=== PATIENT | male | born 1980 | race Two or more races ===

== ENCOUNTER 2019-11-08 08:42 | Inpatient (IN) | payer OTHER ==
[~2019-11-08] VITALS: Ht 175.3 cm; Wt 100.0 kg
[2019-11-08] MEDS ORDERED: IV NORMAL SALINE 1000ML BAG 1,000 ML IV ONE (09:00)
[2019-11-08] MEDS ORDERED: CLINDAMYCIN 900MG PREMIX 50 ML IV ONE (09:30)
[2019-11-08 09:53] LABS: BASO # 0.1 x10^3/uL (0.0-0.2); BASO % 1 % (0-3); EOS # 0.2 x10^3/uL (0.0-0.7); EOS % 2 % (0-3); HEMATOCRIT 44.1 % (39.0-53.0); HEMOGLOBIN 15.4 g/dL (13.0-17.5); LYMPH # 1.8 x10^3/uL (1.0-4.8); LYMPH % 16 % (24-48); MEAN CORPUSCULAR HEMOGLOBIN 32 pg (25-35); MEAN CORPUSCULAR HGB CONC 35 g/dL (31-37); MEAN CORPUSCULAR VOLUME 90 fL (79-100); MONO # 1.9 x10^3/uL (0.0-1.1); MONO % 17 % (0-9); NEUT # 6.9 x10^3/uL (1.8-7.7); NEUT % 64 % (31-73); PLATELET COUNT 433 x10^3/uL (140-400); RED CELL DISTRIBUTION WIDTH 13.1 % (11.5-14.5); WHITE BLOOD COUNT 10.9 x10^3/uL (4.0-11.0)
[2019-11-08 10:05] LABS: CALCIUM 8.7 mg/dL (8.5-10.1); GFR 82.8; POTASSIUM 3.5 mmol/L (3.5-5.1)
[2019-11-08 10:11] LABS: ALBUMIN/GLOBULIN RATIO 0.6 (1.0-1.7); TOTAL BILIRUBIN 0.4 mg/dL (0.2-1.0); TOTAL PROTEIN 7.8 g/dL (6.4-8.2)
[2019-11-08] MEDS ORDERED: MORPHINE SULFATE 4 MG/ML VIAL. IV ONE (10:15)
[2019-11-08] MEDS ORDERED: MORPHINE SULFATE 4 MG/ML VIAL. IV PRN (10:30)
[2019-11-08] MEDS ORDERED: ONDANSETRON PF 4 MG/2 ML VIAL. IV PRN (10:30)
--- NOTE | 2019-11-08 10:35 | PHYS DOC ---
Past Medical History Past Medical History: No Pertinent History Past Surgical History: No Surgical History Smoking Status: Former Smoker Alcohol Use: None General Adult EDM: Chief Complaint: FACE PROBLEM HPI: HPI: Patient is a 39 year old male from [facility] was brought here for evaluation of right side lower facial pain and swelling. Patient has had pain in this area for about 3 weeks. Patient was seen by an oral surgeon Dr.Aaron Contreras, had tooth extraction on 10/28/19, has been on Augmentin, not getting better. Dr. Contreras sent him here for IV ANTIBIOTIC, CT FACE WITH CONTRAST, ADMIT TO THE HOSPITAL AND HE WILL SEE PATIENT THE HOSPITAL. Review of Systems: Review of Systems: Constitutional: Denies fever or chills. [] Eyes: Denies change in visual acuity. [] HENT: Denies nasal congestion or sore throat. Positive for right side facial swelling with dental pain Respiratory: Denies cough or shortness of breath. [] Cardiovascular: Denies chest pain or edema. [] GI: Denies abdominal pain, nausea, vomiting, bloody stools or diarrhea. [] : Denies dysuria. [] Musculoskeletal: Denies back pain or joint pain. [] Integument: Denies rash. [] Neurologic: Denies headache, focal weakness or sensory changes. [] Endocrine: Denies polyuria or polydipsia. [] Lymphatic: Denies swollen glands. [] Psychiatric: Denies depression or anxiety. [] Heart Score: Risk Factors: Risk Factors: DM, Current or recent (<one month) smoker, HTN, HLP, family history of CAD, obesity. Risk Scores: Score 0 - 3: 2.5% MACE over next 6 weeks - Discharge Home Score 4 - 6: 20.3% MACE over next 6 weeks - Admit for Clinical Observation Score 7 - 10: 72.7% MACE over next 6 weeks - Early Invasive Strategies Current Medications: Current Medications Medications (Trade) Dose Ordered Sig/Viki Start Time Stop Time Status Last Admin Dose Admin Clindamycin Phosphate 50 ml @ 100 mls/hr 1X ONCE 11/08/19 09:30 11/08/19 09:59 DC 11/08/19 10:12 100 MLS/HR Morphine Sulfate (Morphine Sulfate) 4 mg QIDPRN PRN 11/08/19 10:30 11/09/19 10:29 UNV Ondansetron HCl (Zofran) 4 mg PRN Q8HRS PRN 11/08/19 10:30 11/09/19 10:29 UNV Sodium Chloride 1,000 ml @ 100 mls/hr Q10H 11/08/19 10:24 11/09/19 10:23 UNV Allergies: Allergies: Allergies Coded Allergies Type Severity Reaction Last Updated Verified No Known Drug Allergies 11/08/19 No Physical Exam: PE: Constitutional: Well developed, well nourished, no acute distress, non-toxic appearance. [] HENT: Normocephalic, atraumatic, right side lower jaw swelling and tender, patient can open his mouth with great effort. Eyes: PERRLA, EOMI, conjunctiva normal, no discharge. [] Neck: Normal range of motion, no tenderness, supple, no stridor. [] Cardiovascular:Heart rate regular rhythm, no murmur [] Lungs & Thorax: Bilateral breath sounds clear to auscultation [] Abdomen: Bowel sounds normal, soft, no tenderness, no masses, no pulsatile masses. [] Skin: Warm, dry, no erythema, no rash. [] Back: No tenderness, no CVA tenderness. [] Extremities: No tenderness, no cyanosis, no clubbing, ROM intact, no edema. [] Neurologic: Alert and oriented X 3, normal motor function, normal sensory function, no focal deficits noted. [] Psychologic: Affect normal, judgement normal, mood normal. [] Current Patient Data: Labs: Laboratory Tests Test 11/08/19 09:45 White Blood Count 10.9 x10^3/uL (4.0-11.0) Red Blood Count 4.90 x10^6/uL (4.30-5.70) Hemoglobin 15.4 g/dL (13.0-17.5) Hematocrit 44.1 % (39.0-53.0) Mean Corpuscular Volume 90 fL (79-100) Mean Corpuscular Hemoglobin 32 pg (25-35) Mean Corpuscular Hemoglobin Concent 35 g/dL (31-37) Red Cell Distribution Width 13.1 % (11.5-14.5) Platelet Count 433 x10^3/uL (140-400) H Neutrophils (%) (Auto) 64 % (31-73) Lymphocytes (%) (Auto) 16 % (24-48) L Monocytes (%) (Auto) 17 % (0-9) H Eosinophils (%) (Auto) 2 % (0-3) Basophils (%) (Auto) 1 % (0-3) Neutrophils # (Auto) 6.9 x10^3/uL (1.8-7.7) Lymphocytes # (Auto) 1.8 x10^3/uL (1.0-4.8) Monocytes # (Auto) 1.9 x10^3/uL (0.0-1.1) H Eosinophils # (Auto) 0.2 x10^3/uL (0.0-0.7) Basophils # (Auto) 0.1 x10^3/uL (0.0-0.2) Sodium Level 137 mmol/L (136-145) Potassium Level 3.5 mmol/L (3.5-5.1) Chloride Level 99 mmol/L (98-107) Carbon Dioxide Level 28 mmol/L (21-32) Anion Gap 10 (6-14) Blood Urea Nitrogen 10 mg/dL (8-26) Creatinine 1.0 mg/dL (0.7-1.3) Estimated GFR (Cockcroft-Gault) 82.8 BUN/Creatinine Ratio 10 (6-20) Glucose Level 110 mg/dL (70-99) H Calcium Level 8.7 mg/dL (8.5-10.1) Total Bilirubin 0.4 mg/dL (0.2-1.0) Aspartate Amino Transferase (AST) 39 U/L (15-37) H Alanine Aminotransferase (ALT) 55 U/L (16-63) Alkaline Phosphatase 109 U/L (46-116) Total Protein 7.8 g/dL (6.4-8.2) Albumin 3.0 g/dL (3.4-5.0) L Albumin/Globulin Ratio 0.6 (1.0-1.7) L Laboratory Tests 11/08/19 09:45 Laboratory Tests 11/08/19 09:45 Vital Signs: Vital Signs Date Time Temp Pulse Resp B/P (MAP) Pulse Ox O2 Delivery O2 Flow Rate FiO2 11/08/19 09:00 99.0 90 20 140/91 (107) 98 Room Air 99.0 EKG: EKG: [] Radiology/Procedures: Radiology/Procedures: [][facility] [address] [place], [place] [id number] IMAGING REPORT Signed PATIENT: JUNG HATFIELD: [id number] : 1980 LOCATION: [address] [place] [address] AGE: 39 SEX: M EXAM STATUS: ADM IN ORD. PHYSICIAN: ROSITA CARR DO REASON: dental swelling, abscess, recent extractions PROCEDURE: CT SOFT TISSUE NECK W/CONTRAST CT SOFT TISSUE NECK W/CONTRAST DATE: 11/08/2019 10:12 AM INDICATION: dental swelling, abscess, recent extractions TECHNIQUE: Axial computed tomography of the neck with intravenous contrast according to the standard neck protocol. 75 cc of Omnipaque 300 was administered intravenously. One or more of the following dose reduction techniques were utilized: Automated exposure control (AEC), Adjustment of mA and/or kV according to patient size, Use of iterative reconstruction technique such as ASiR, CT scan done according to ALARA and image gently/image wisely COMPARISON: None. FINDINGS: Right lower facial subcutaneous stranding and thickening of the platysma. Thin low-attenuation collection along the buccal surface of the mandible on the right, measuring 3 mm in thickness and 2 cm in length. Scattered subcentimeter lymph nodes are seen in the neck. None are pathologically enlarged or abnormally enhancing. The parotid, submandibular, and thyroid glands are normal. The muscles of the neck are normal. Vessels of the neck demonstrate normal course, caliber, and enhancement. The visualized aerodigestive tract is normal. The visualized posterior fossa and brain is unremarkable. The visualized orbits and paranasal sinuses are normal. The cervical spine is normal. The visualized lung apices are clear. IMPRESSION: Right lower facial cellulitis with a thin collection extending along the buccal surface of the mandible measuring 3 mm in thickness and 2 cm in length, suspicious for an abscess. Electronically signed by: Pollo Blair MD (11/08/2019 11:51 AM) [id number] DICTATED and SIGNED BY: POLLO BLAIR MD DATE: 11/08/19 1151 Course & Med Decision Making: Course & Med Decision Making Pertinent Labs and Imaging studies reviewed. (See chart for details) [] Dragon Disclaimer: Dragon Disclaimer: This electronic medical record was generated, in whole or in part, using a voice recognition dictation system. Departure Departure Impression: Primary Impression: Dental abscess Disposition: ADMITTED INPATIENT Admitting Physician: DOREEN (DR. NOGUERA) Condition: STABLE Referrals: NO PCP (PCP) Justicifation of Admission Dx: Justifications for Admission: Justification of Admission Dx: N/A ROSITA CARR DO Nov 08, 2019 10:35
[2019-11-08] MEDS ORDERED: IOHEXOL 300 MG/ML 100ML VIAL. IV ONE (10:45)
[2019-11-08] MEDS ORDERED: CONTRAST GIVEN. MC PRN (10:45)
[2019-11-08] MEDS: IV NORMAL SALINE 1000ML BAG 1,000 ML IV SCH ×2 (10:54→20:30)
--- NOTE | 2019-11-08 11:55 | RAD ---
CT SOFT TISSUE NECK W/CONTRAST DATE: 11/08/2019 10:12 AM INDICATION: dental swelling, abscess, recent extractions TECHNIQUE: Axial computed tomography of the neck with intravenous contrast according to the standard neck protocol. 75 cc of Omnipaque 300 was administered intravenously. One or more of the following dose reduction techniques were utilized: Automated exposure control (AEC), Adjustment of mA and/or kV according to patient size, Use of iterative reconstruction technique such as ASiR, CT scan done according to ALARA and image gently/image wisely COMPARISON: None. FINDINGS: Right lower facial subcutaneous stranding and thickening of the platysma. Thin low-attenuation collection along the buccal surface of the mandible on the right, measuring 3 mm in thickness and 2 cm in length. Scattered subcentimeter lymph nodes are seen in the neck. None are pathologically enlarged or abnormally enhancing. The parotid, submandibular, and thyroid glands are normal. The muscles of the neck are normal. Vessels of the neck demonstrate normal course, caliber, and enhancement. The visualized aerodigestive tract is normal. The visualized posterior fossa and brain is unremarkable. The visualized orbits and paranasal sinuses are normal. The cervical spine is normal. The visualized lung apices are clear. IMPRESSION: Right lower facial cellulitis with a thin collection extending along the buccal surface of the mandible measuring 3 mm in thickness and 2 cm in length, suspicious for an abscess. Electronically signed by: Rafael Blair MD (11/08/2019 11:51 AM) [id number]
[2019-11-08 12:39] VITALS: BP 142/89
[2019-11-08 15:19] VITALS: BP 147/89
--- NOTE | 2019-11-08 15:57 | PDOC1 ---
History and Physical Date of Admission: Date of Admission DATE: 11/08/19 TIME: 15:50 Chief Complaint: Chief Complain: Oral swelling and dental pain History of Present Illness: HPI: 39 year old male from [facility] was brought here for evaluation of right side lower facial pain and swelling. Patient has had pain in this area for about 3 weeks. Patient was seen by an oral surgeon Dr.Aaron Contreras, had tooth extraction on 10/28/19, has been on Augmentin, without any improvement. Patient was sent to the ED for IV antibiotics and CT of the's neck with contrast. Patient will be seen by oral surgeon tomorrow for possible surgical I&D Past Medical/Surgical History: PMH/PSH: Past Medical History: No Pertinent History Past Surgical History: No Surgical History Allergies: Allergies: Coded Allergies: No Known Drug Allergies (Unverified , 11/08/19) Family History: Family History: Reviewed and none reported Social History: Social History: Smoking Status: Former Smoker Alcohol Use: None Patient has been incarcerated for the past 9 years Current Medications: Current Medications Current Medications Clindamycin Phosphate 50 ml @ 100 mls/hr Q8HRS IV ; Start 11/08/19 at 16:00 Sodium Chloride 1,000 ml @ 1,000 mls/hr 1X ONCE IV Last administered on 11/08/19at 10:10; Start 11/08/19 at 09:00; Stop 11/08/19 at 09:59; Status DC Clindamycin Phosphate 50 ml @ 100 mls/hr 1X ONCE IV Last administered on 11/08/19at 10:12; Start 11/08/19 at 09:30; Stop 11/08/19 at 09:59; Status DC Morphine Sulfate (Morphine Sulfate) 4 mg 1X ONCE IV Last administered on 11/08/19at 10:23; Start 11/08/19 at 10:15; Stop 11/08/19 at 10:16; Status DC Ondansetron HCl (Zofran) 4 mg PRN Q8HRS PRN IV NAUSEA/VOMITING Last administered on 11/08/19at 10:54; Start 11/08/19 at 10:30; Stop 11/09/19 at 10:29 Morphine Sulfate (Morphine Sulfate) 4 mg QIDPRN PRN IV PAIN Last administered on 11/08/19at 10:54; Start 11/08/19 at 10:30; Stop 11/09/19 at 10:29 Sodium Chloride 1,000 ml @ 100 mls/hr Q10H IV Last administered on 11/08/19at 10:54; Start 11/08/19 at 10:24; Stop 11/09/19 at 10:23 Iohexol (Omnipaque 300 Mg/ml) 75 ml 1X ONCE IV Last administered on 11/08/19at 10:51; Start 11/08/19 at 10:45; Stop 11/08/19 at 10:46; Status DC Info (CONTRAST GIVEN -- Rx MONITORING) 1 each PRN DAILY PRN MC SEE COMMENTS; Start 11/08/19 at 10:45; Stop 11/10/19 at 10:44 Active Scripts Active Reported No Known Medications Prior To Admisstion (Info) Each 1 Each MC UNKNOWN ROS: Review of Systems Review of System REVIEW OF SYSTEMS: GENERAL: Denies weakness SKIN: No bruising, hair changes or rashes. EYES: No blurred, double or loss of vision. NOSE AND THROAT: No history of nosebleeds, hoarseness or sore throat. HEART: No history of palpitations, chest pain or shortness of breath on exertion. LUNGS: Denies cough, hemoptysis, wheezing or shortness of breath. GASTROINTESTINAL: Denies changes in appetite, nausea, vomiting, diarrhea or constipation. GENITOURINARY: No history of frequency, urgency, hesitancy or nocturia. NEUROLOGIC: Denies history of numbness, tingling, or tremor. PSYCHIATRIC: No history of panic, anxiety or depression. ENDOCRINE: No history of heat or cold intolerance, polyuria or polydipsia. EXTREMITIES: Denies joint pain, pain on walking or stiffness. Physical Exam: Vital Signs: Vital Signs Date Time Temp Pulse Resp B/P (MAP) Pulse Ox O2 Delivery O2 Flow Rate FiO2 11/08/19 15:19 99.0 71 17 147/89 (108) 98 Room Air 99.0 Physcial Exam: GEN: No apparent distress. Alert and oriented HEENT: Normal cephalic, atraumatic, external auditory canals are patent. Moist mucous membranes with right mandibular jaw swelling. There is no purulent drainage.'s exquisite tenderness upon palpation EYES: Extraocular muscles are intact, pupil are equally round and reactive to light and accommodation MUSCULOSKELETAL: Well developed , well nourished, good range of motion ENDOCRINE: No thyromegaly was palpated LYMPHATICS: No cervical chain or axillary nodes were noted HEMATOPOIETIC: No bruising NECK: Supple, no JVD, no thyromegaly was noted LUNGS: Clear to auscultation in all lung de la garza without rhonchi or wheezing HEART: RRR, S!, S2 present. Peripheral pulses intact, no obvious murmurs noted ABDOMEN: Soft, nontender. Positive bowel sounds, no organomegaly, normal bowel sounds EXTREMITIES: Without clubbing, cyanosis, or edema. Pedal pulses intact. Negative Homans sign NEUROLOGIC: Normal speech and tone. A&O x 3, moves all extremities, no obvio us focal deficits PSYCHIATRIC: Normal affect, normal mood. Stable SKIN: No ulcerations or rashes, good skin turgor, no jaundice VASCULAR: Good capillary refill, neurovascular bundle appears to be intact Labs: Labs: Laboratory Tests Test 11/08/19 09:45 11/08/19 12:50 White Blood Count 10.9 x10^3/uL (4.0-11.0) Red Blood Count 4.90 x10^6/uL (4.30-5.70) Hemoglobin 15.4 g/dL (13.0-17.5) Hematocrit 44.1 % (39.0-53.0) Mean Corpuscular Volume 90 fL (79-100) Mean Corpuscular Hemoglobin 32 pg (25-35) Mean Corpuscular Hemoglobin Concent 35 g/dL (31-37) Red Cell Distribution Width 13.1 % (11.5-14.5) Platelet Count 433 x10^3/uL (140-400) Neutrophils (%) (Auto) 64 % (31-73) Lymphocytes (%) (Auto) 16 % (24-48) Monocytes (%) (Auto) 17 % (0-9) Eosinophils (%) (Auto) 2 % (0-3) Basophils (%) (Auto) 1 % (0-3) Neutrophils # (Auto) 6.9 x10^3/uL (1.8-7.7) Lymphocytes # (Auto) 1.8 x10^3/uL (1.0-4.8) Monocytes # (Auto) 1.9 x10^3/uL (0.0-1.1) Eosinophils # (Auto) 0.2 x10^3/uL (0.0-0.7) Basophils # (Auto) 0.1 x10^3/uL (0.0-0.2) Sodium Level 137 mmol/L (136-145) Potassium Level 3.5 mmol/L (3.5-5.1) Chloride Level 99 mmol/L (98-107) Carbon Dioxide Level 28 mmol/L (21-32) Anion Gap 10 (6-14) Blood Urea Nitrogen 10 mg/dL (8-26) Creatinine 1.0 mg/dL (0.7-1.3) Estimated GFR (Cockcroft-Gault) 82.8 BUN/Creatinine Ratio 10 (6-20) Glucose Level 110 mg/dL (70-99) Calcium Level 8.7 mg/dL (8.5-10.1) Total Bilirubin 0.4 mg/dL (0.2-1.0) Aspartate Amino Transf (AST/SGOT) 39 U/L (15-37) Alanine Aminotransferase (ALT/SGPT) 55 U/L (16-63) Alkaline Phosphatase 109 U/L (46-116) Total Protein 7.8 g/dL (6.4-8.2) Albumin 3.0 g/dL (3.4-5.0) Albumin/Globulin Ratio 0.6 (1.0-1.7) SARS-CoV-2 Antigen (Rapid) Negative (NEGATIVE) Laboratory Tests Test 11/08/19 09:45 11/08/19 12:50 White Blood Count 10.9 x10^3/uL (4.0-11.0) Red Blood Count 4.90 x10^6/uL (4.30-5.70) Hemoglobin 15.4 g/dL (13.0-17.5) Hematocrit 44.1 % (39.0-53.0) Mean Corpuscular Volume 90 fL (79-100) Mean Corpuscular Hemoglobin 32 pg (25-35) Mean Corpuscular Hemoglobin Concent 35 g/dL (31-37) Red Cell Distribution Width 13.1 % (11.5-14.5) Platelet Count 433 x10^3/uL (140-400) Neutrophils (%) (Auto) 64 % (31-73) Lymphocytes (%) (Auto) 16 % (24-48) Monocytes (%) (Auto) 17 % (0-9) Eosinophils (%) (Auto) 2 % (0-3) Basophils (%) (Auto) 1 % (0-3) Neutrophils # (Auto) 6.9 x10^3/uL (1.8-7.7) Lymphocytes # (Auto) 1.8 x10^3/uL (1.0-4.8) Monocytes # (Auto) 1.9 x10^3/uL (0.0-1.1) Eosinophils # (Auto) 0.2 x10^3/uL (0.0-0.7) Basophils # (Auto) 0.1 x10^3/uL (0.0-0.2) Sodium Level 137 mmol/L (136-145) Potassium Level 3.5 mmol/L (3.5-5.1) Chloride Level 99 mmol/L (98-107) Carbon Dioxide Level 28 mmol/L (21-32) Anion Gap 10 (6-14) Blood Urea Nitrogen 10 mg/dL (8-26) Creatinine 1.0 mg/dL (0.7-1.3) Estimated GFR (Cockcroft-Gault) 82.8 BUN/Creatinine Ratio 10 (6-20) Glucose Level 110 mg/dL (70-99) Calcium Level 8.7 mg/dL (8.5-10.1) Total Bilirubin 0.4 mg/dL (0.2-1.0) Aspartate Amino Transf (AST/SGOT) 39 U/L (15-37) Alanine Aminotransferase (ALT/SGPT) 55 U/L (16-63) Alkaline Phosphatase 109 U/L (46-116) Total Protein 7.8 g/dL (6.4-8.2) Albumin 3.0 g/dL (3.4-5.0) Albumin/Globulin Ratio 0.6 (1.0-1.7) SARS-CoV-2 Antigen (Rapid) Negative (NEGATIVE) Images: Images All images and reports were reviewed by CT SOFT TISSUE NECK W/CONTRAST DATE: 11/08/2019 10:12 AM INDICATION: dental swelling, abscess, recent extractions TECHNIQUE: Axial computed tomography of the neck with intravenous contrast according to the standard neck protocol. 75 cc of Omnipaque 300 was administered intravenously. One or more of the following dose reduction techniques were utilized: Automated exposure control (AEC), Adjustment of mA and/or kV according to patient size, Use of iterative reconstruction technique such as ASiR, CT scan done according to ALARA and image gently/image wisely COMPARISON: None. FINDINGS: Right lower facial subcutaneous stranding and thickening of the platysma. Thin low-attenuation collection along the buccal surface of the mandible on the right, measuring 3 mm in thickness and 2 cm in length. Scattered subcentimeter lymph nodes are seen in the neck. None are pathologically enlarged or abnormally enhancing. The parotid, submandibular, and thyroid glands are normal. The muscles of the neck are normal. Vessels of the neck demonstrate normal course, caliber, and enhancement. The visualized aerodigestive tract is normal. The visualized posterior fossa and brain is unremarkable. The visualized orbits and paranasal sinuses are normal. The cervical spine is normal. The visualized lung apices are clear. IMPRESSION: Right lower facial cellulitis with a thin collection extending along the buccal surface of the mandible measuring 3 mm in thickness and 2 cm in length, suspicious for an abscess. Assessment/Plan Assessment/Plan Right facial cellulitis with possible abscess Mild malnutrition Admit to medicine Keep n.p.o. for now Continue IV clindamycin Toradol as needed for pain control Lovenox for DVT prophylaxis Soft GI diet for now, n.p.o. at midnight Full code Discussed with RN and SW Dispo pending oral surgery evaluation Justicifation of Admission Dx: Justifications for Admission: Justification of Admission Dx: Yes Cellulitis: Cellulitis ANTHONY NOGUERA MD Nov 08, 2019 15:57
[2019-11-08] MEDS: CLINDAMYCIN 900MG PREMIX 50 ML IV SCH ×2 (16:37→22:26)
[2019-11-08] MEDS: ENOXAPARIN 40 MG/0.4 ML SYRINGE. SQ SCH (16:38)
[2019-11-08] MEDS: KETOROLAC 30 MG/ML VIAL. IVP PRN (16:48)
[2019-11-08 19:00] VITALS: BP 140/92
--- NOTE | 2019-11-08 20:16 | PDOC1 ---
History and Physical Date of Admission Date of Admission 11/08/2019 Identification/Chief Complaint Chief Complaint Swelling and pain of lower right mandible, persistent following extraction of #32 Numbness of lower right lip (CN V Div III) Problems: (1) Dental abscess Source Source: Patient History of Present Illness History of Present Illness Swelling and pain of lower right mandible, persistent following extraction of #32 Tooth was extracted approximately 2-3 weeks ago. Numbness of lower right lip (CN V Div III) lasting one week Past Medical History Cardiovascular: No pertinent hx Past Surgical History Past Surgical History: No pertinent history Current Problem List Problem List Problems Medical Problems: (1) Dental abscess Status: Acute Current Medications Current Medications Current Medications Medications (Trade) Dose Ordered Sig/Viki Start Time Stop Time Status Last Admin Dose Admin Clindamycin Phosphate 50 ml @ 100 mls/hr 1X ONCE 11/08/19 09:30 11/08/19 09:59 DC 11/08/19 10:12 100 MLS/HR Enoxaparin Sodium (Lovenox 40mg Syringe) 40 mg Q24H 11/08/19 17:00 11/08/19 16:38 40 MG Info (CONTRAST GIVEN -- Rx MONITORING) 1 each PRN DAILY PRN 11/08/19 10:45 11/10/19 10:44 Iohexol (Omnipaque 300 Mg/ml) 75 ml 1X ONCE 11/08/19 10:45 11/08/19 10:46 DC 11/08/19 10:51 75 ML Ketorolac Tromethamine (Toradol 30mg Vial) 30 mg PRN Q6HRS PRN 11/08/19 16:00 11/13/19 15:59 11/08/19 16:48 30 MG Morphine Sulfate (Morphine Sulfate) 4 mg QIDPRN PRN 11/08/19 10:30 11/09/19 10:29 11/08/19 10:54 4 MG Ondansetron HCl (Zofran) 4 mg PRN Q8HRS PRN 11/08/19 10:30 11/09/19 10:29 11/08/19 10:54 4 MG Sodium Chloride 1,000 ml @ 100 mls/hr Q10H 11/08/19 10:24 11/09/19 10:23 11/08/19 10:54 100 MLS/HR Allergies Allergies Allergies Coded Allergies Type Severity Reaction Last Updated Verified No Known Drug Allergies 11/08/19 No ROS Review of System CONSTITUTIONAL: No fever or chills EYES: No recent changes SKIN: No rash or itching CARDIOVASCULAR: No chest pain, syncope, palpitations, or edema RESPIRATORY: No SOB or cough GASTROINTESTINAL: No nausea, vomiting or abdominal pain NEUROLOGICAL: No headaches or weakness ENDOCRINE: No cold or heat intolerance GENITOURINARY: No urgency or frequency of urination MUSCULOSKELETAL: No back pain or joint pain LYMPHATICS: No enlarged lymph nodes PSYCHIATRIC: No anxiety or depression Physical Exam Physical Exam GEN.: No apparent distress. Alert and oriented. HEENT: Head is normocephalic, atraumatic Lower right swelling ++ Tender 6x 6cm indurated, located at buccal #32 area, extending below inferior boarder of mandible # 30,31 both are grade I+ II mobile with significant soft tissue swelling around both teeth (Plan to extract these teeth, and debride posterior mandible back to bleeding bone.) #29,28 are grade I Mobile (Plant to keep these teeth) Lower right floor of mouth elevation. FROM tongue Uvula at midline NECK: induration of right submandibular space and maintenance groundskeeper space LUNGS: Clear to auscultation. HEART: RRR, S1, S2 present. Peripheral pulses intact ABDOMEN: Soft, nontender. Positive bowel sounds. EXTREMITIES: Without any cyanosis. NEUROLOGIC: Normal speech, normal tone PSYCHIATRIC: Normal affect, normal mood. SKIN: No ulcerations Vitals Vitals Vital Signs Date Time Temp Pulse Resp B/P (MAP) Pulse Ox O2 Delivery O2 Flow Rate FiO2 11/08/19 15:19 99.0 71 17 147/89 (108) 98 Room Air 99.0 Labs Labs Laboratory Tests Test 11/08/19 09:45 11/08/19 12:50 White Blood Count 10.9 x10^3/uL (4.0-11.0) Red Blood Count 4.90 x10^6/uL (4.30-5.70) Hemoglobin 15.4 g/dL (13.0-17.5) Hematocrit 44.1 % (39.0-53.0) Mean Corpuscular Volume 90 fL (79-100) Mean Corpuscular Hemoglobin 32 pg (25-35) Mean Corpuscular Hemoglobin Concent 35 g/dL (31-37) Red Cell Distribution Width 13.1 % (11.5-14.5) Platelet Count 433 x10^3/uL (140-400) Neutrophils (%) (Auto) 64 % (31-73) Lymphocytes (%) (Auto) 16 % (24-48) Monocytes (%) (Auto) 17 % (0-9) Eosinophils (%) (Auto) 2 % (0-3) Basophils (%) (Auto) 1 % (0-3) Neutrophils # (Auto) 6.9 x10^3/uL (1.8-7.7) Lymphocytes # (Auto) 1.8 x10^3/uL (1.0-4.8) Monocytes # (Auto) 1.9 x10^3/uL (0.0-1.1) Eosinophils # (Auto) 0.2 x10^3/uL (0.0-0.7) Basophils # (Auto) 0.1 x10^3/uL (0.0-0.2) Sodium Level 137 mmol/L (136-145) Potassium Level 3.5 mmol/L (3.5-5.1) Chloride Level 99 mmol/L (98-107) Carbon Dioxide Level 28 mmol/L (21-32) Anion Gap 10 (6-14) Blood Urea Nitrogen 10 mg/dL (8-26) Creatinine 1.0 mg/dL (0.7-1.3) Estimated GFR (Cockcroft-Gault) 82.8 BUN/Creatinine Ratio 10 (6-20) Glucose Level 110 mg/dL (70-99) Calcium Level 8.7 mg/dL (8.5-10.1) Total Bilirubin 0.4 mg/dL (0.2-1.0) Aspartate Amino Transf (AST/SGOT) 39 U/L (15-37) Alanine Aminotransferase (ALT/SGPT) 55 U/L (16-63) Alkaline Phosphatase 109 U/L (46-116) Total Protein 7.8 g/dL (6.4-8.2) Albumin 3.0 g/dL (3.4-5.0) Albumin/Globulin Ratio 0.6 (1.0-1.7) SARS-CoV-2 Antigen (Rapid) Negative (NEGATIVE) Laboratory Tests Test 11/08/19 09:45 11/08/19 12:50 White Blood Count 10.9 x10^3/uL (4.0-11.0) Red Blood Count 4.90 x10^6/uL (4.30-5.70) Hemoglobin 15.4 g/dL (13.0-17.5) Hematocrit 44.1 % (39.0-53.0) Mean Corpuscular Volume 90 fL (79-100) Mean Corpuscular Hemoglobin 32 pg (25-35) Mean Corpuscular Hemoglobin Concent 35 g/dL (31-37) Red Cell Distribution Width 13.1 % (11.5-14.5) Platelet Count 433 x10^3/uL (140-400) Neutrophils (%) (Auto) 64 % (31-73) Lymphocytes (%) (Auto) 16 % (24-48) Monocytes (%) (Auto) 17 % (0-9) Eosinophils (%) (Auto) 2 % (0-3) Basophils (%) (Auto) 1 % (0-3) Neutrophils # (Auto) 6.9 x10^3/uL (1.8-7.7) Lymphocytes # (Auto) 1.8 x10^3/uL (1.0-4.8) Monocytes # (Auto) 1.9 x10^3/uL (0.0-1.1) Eosinophils # (Auto) 0.2 x10^3/uL (0.0-0.7) Basophils # (Auto) 0.1 x10^3/uL (0.0-0.2) Sodium Level 137 mmol/L (136-145) Potassium Level 3.5 mmol/L (3.5-5.1) Chloride Level 99 mmol/L (98-107) Carbon Dioxide Level 28 mmol/L (21-32) Anion Gap 10 (6-14) Blood Urea Nitrogen 10 mg/dL (8-26) Creatinine 1.0 mg/dL (0.7-1.3) Estimated GFR (Cockcroft-Gault) 82.8 BUN/Creatinine Ratio 10 (6-20) Glucose Level 110 mg/dL (70-99) Calcium Level 8.7 mg/dL (8.5-10.1) Total Bilirubin 0.4 mg/dL (0.2-1.0) Aspartate Amino Transf (AST/SGOT) 39 U/L (15-37) Alanine Aminotransferase (ALT/SGPT) 55 U/L (16-63) Alkaline Phosphatase 109 U/L (46-116) Total Protein 7.8 g/dL (6.4-8.2) Albumin 3.0 g/dL (3.4-5.0) Albumin/Globulin Ratio 0.6 (1.0-1.7) SARS-CoV-2 Antigen (Rapid) Negative (NEGATIVE) Images Images See CT Scan Right submandibular abscess right maintenance groundskeeper space abscess VTE Prophylaxis Ordered VTE Prophylaxis Devices: No VTE Pharmacological Prophylaxi: Yes Assessment/Plan Assessment/Plan 39 yom s/p dental extraction by dentist in [place] Pt reports Swelling and pain of lower right mandible, persistent following extraction of #32 Numbness of lower right lip (CN V Div III) CT documented right submandibular and maintenance groundskeeper space abscess. Plan: Admit with hospitalist OMFS to consult NPO with IV ABX plan to post to OR on 11/09/19 (I have 2 cases starting at noon, he can add on) Plan I&D right neck and submental area, plan extraction of # 30, and 31, And debridement of mandible Take hard tissue specimen for culture and permanent pathology Anticipate stay 3-4 days in [facility] with IV ABX, Please consult ID following debridement for ABX planning Justicifation of Admission Dx: Justifications for Admission: Justification of Admission Dx: N/A Cellulitis: Cellulitis PEPE FOUNTAIN DMD Nov 08, 2019 20:16
[2019-11-08 23:00] VITALS: BP 145/83
[2019-11-09 02:46] VITALS: BP 156/100
[2019-11-09] MEDS: IV NORMAL SALINE 1000ML BAG 1,000 ML IV SCH (06:00)
[2019-11-09] MEDS: CLINDAMYCIN 900MG PREMIX 50 ML IV SCH ×3 (06:00→20:44)
[2019-11-09 07:00] VITALS: BP 152/89
[2019-11-09 11:00] VITALS: BP 160/83
--- NOTE | 2019-11-09 11:15 | PDOC ---
[employer] PROGRESS NOTE Chief Complaint Chief Complaint Swelling and pain of lower right mandible, persistent following extraction of #32 Numbness of lower right lip (CN V Div III) History of Present Illness History of Present Illness 11/09/19 Pt seen and examined with guards in the room Chart reviewed Discussed with RN Vitals/I&O Vitals/I&O: Vital Signs Date Time Temp Pulse Resp B/P (MAP) Pulse Ox O2 Delivery O2 Flow Rate FiO2 11/09/19 11:00 98.7 113 18 160/83 (108) 96 Room Air 98.7 I & O 11/08/19 11/08/19 11/09/19 15:00 23:00 07:00 Intake Total 1050 ml 300 ml Output Total 0 ml 400 ml Balance 1050 ml 0 ml -100 ml Physical Exam General: Alert, Oriented X3, No acute distress Heart: Regular rate, Normal S1 Lungs: Clear Abdomen: Soft, No tenderness Extremities: No clubbing, No cyanosis, No edema Skin: No rashes, No significant lesion Labs Labs: Laboratory Tests Test 11/08/19 12:50 SARS-CoV-2 Antigen (Rapid) Negative (NEGATIVE) Assessment and Plan Assessmemt and Plan Problems Medical Problems: (1) Dental abscess Status: Acute Assessment/Plan 39 yom s/p dental extraction by dentist in [place] Swelling and pain of lower right mandible, persistent following extraction of #32 Numbness of lower right lip (CN V Div III) CT documented right submandibular and apparel pattern maker space abscess Plan: NPO with IV clindamycin Awaiting oral surgery on 11/09/19 for I&D right neck and submental area, extraction of # 30, and 31, and debridement of mandible Take hard tissue specimen for culture and permanent pathology Anticipate stay 3-[address] [facility] with IV ABX Continue toradol for pain DVT prophylaxis Full code Comment Review of Relevant I have reviewed the following items shereen (where applicable) has been applied. Medications: Current Medications Medications (Trade) Dose Ordered Sig/Viki Route PRN Reason Start Time Stop Time Status Last Admin Dose Admin Clindamycin Phosphate 50 ml @ 100 mls/hr Q8HRS IV 11/08/19 16:00 11/09/19 06:00 Enoxaparin Sodium (Lovenox 40mg Syringe) 40 mg Q24H SQ 11/08/19 17:00 11/08/19 16:38 Ketorolac Tromethamine (Toradol 30mg Vial) 30 mg PRN Q6HRS PRN IVP PAIN 11/08/19 16:00 11/13/19 15:59 11/08/19 16:48 Justicifation of Admission Dx: Justifications for Admission: Justification of Admission Dx: N/A Cellulitis: Cellulitis BHAVYA WILL III DO Nov 09, 2019 11:15
[2019-11-09] MEDS ORDERED: NEOSTIGMINE 10 MG/10 ML VIAL. ONE (15:08)
[2019-11-09] MEDS ORDERED: ROCURONIUM 50 MG/5 ML VIAL. ONE (15:08)
[2019-11-09] MEDS ORDERED: fentaNYL PF VIAL 100 MCG/2 ML VIAL ONE ×4 (15:08→17:45)
[2019-11-09] MEDS ORDERED: PROPOFOL 10 MG/ML (20ML) VIAL. IV ONE (15:09)
[2019-11-09] MEDS ORDERED: MIDAZOLAM HCL/PF 2 MG/2 ML VIAL. ONE (15:09)
[2019-11-09] MEDS ORDERED: ONDANSETRON PF 4 MG/2 ML VIAL. ONE (15:09)
[2019-11-09] MEDS ORDERED: LIDOCAINE 2% PF 5 ML VIAL. ONE (15:09)
[2019-11-09] MEDS ORDERED: DEXAMETHASONE SOD PHOS 4 MG/ML VIAL ONE (15:09)
--- NOTE | 2019-11-09 15:36 | PDOC ---
GENERAL General: 11/09/2019 NAEO NPO since midnight Exam is essentially the same FREDI limited to 30mm secondary to pain [facility] right face/neck induration / abscess mobile teeth # 30, 31 numbness of right RAZ lip/chin/teeth Problems: (1) Dental abscess VITAL SIGNS Vital Signs/I&O: Vital Signs Date Time Temp Pulse Resp B/P (MAP) Pulse Ox O2 Delivery O2 Flow Rate FiO2 11/09/19 14:27 98.7 84 16 134/89 96 Room Air 98.7 I & O 11/08/19 11/08/19 11/09/19 14:59 22:59 06:59 Intake Total 1050 ml 300 ml Output Total 0 ml 400 ml Balance 1050 ml 0 ml -100 ml ALLERGIES Allergies: Allergies Coded Allergies Type Severity Reaction Last Updated Verified No Known Drug Allergies 11/08/19 No MEDS Medications: Current Medications Medications (Trade) Dose Ordered Sig/Viki Route PRN Reason Start Time Stop Time Status Last Admin Dose Admin Clindamycin Phosphate 50 ml @ 100 mls/hr Q8HRS IV 11/08/19 16:00 11/09/19 13:53 Enoxaparin Sodium (Lovenox 40mg Syringe) 40 mg Q24H SQ 11/08/19 17:00 11/08/19 16:38 Ketorolac Tromethamine (Toradol 30mg Vial) 30 mg PRN Q6HRS PRN IVP PAIN 11/08/19 16:00 11/13/19 15:59 11/08/19 16:48 ASSESSMENT & PLAN A&P 39 yom s/p extraction #32 by nursing home dentist with worsening symptoms of pain and swelling over last 3 weeks [facility] right face/neck induration / abscess mobile teeth # 30, 31 numbness of right RAZ lip/chin/teeth Plan to OR today I&D right neck Extraction teeth #30,31 debridement of right mandible back to bleeding bone submit cultures of bone/ and permanent specimens to pathology. Justicifation of Admission Dx: Justifications for Admission: Justification of Admission Dx: N/A Cellulitis: Cellulitis PEPE FOUNTAIN DMD Nov 09, 2019 15:36
[2019-11-09] MEDS ORDERED: CHLORHEXIDINE 0.12% 15 ML MOUTHWASH. ONE (15:53)
[2019-11-09] MEDS ORDERED: GELATIN SPONGE SIZE 100. ONE (15:53)
[2019-11-09] MEDS ORDERED: BUPIVACAINE-EPI 0.5%-1:200000 MPF 30 ML VIAL. ONE (15:53)
[2019-11-09] MEDS ORDERED: GLYCOPYRROLATE 1 MG/5 ML VIAL. ONE (16:31)
[2019-11-09] MEDS: ENOXAPARIN 40 MG/0.4 ML SYRINGE. SQ SCH (17:00)
[2019-11-09] MEDS: IV RINGERS,LACTATED 1000ML 1,000 ML IV SCH (17:45)
--- NOTE | 2019-11-09 17:51 | PDOC4 ---
OPERATIVE NOTE Date: Date: Nov 09, 2019 Pre-Op Diagnosis: S/P Extraction of #32 Right mandible infection and right neck abscess Grossly mobile teeth # 31, 30, 29, 28 Post-Op Diagnosis: same Procedure Performed: S/P Extraction of #32 Incision and drainage of right mandible infection and right neck abscess extraction of grossly mobile teeth # 31, 30, 29, 28 Specimens and cultures taken of mandible, and right neck abscess Surgeon: latanya Anesthesia Type: uche Blood Loss: 100 Specimans Obtained: # 1 right neck abscess culture #2, 3 right mandible culture #4 right mandible for permanent (Identify osteo / rule out SCC) Findings: Grossly mobile teeth # 31, 30, 29, 28 Continued abscess of mandible extending anteriorly to teeth # 28/29 Elected to remove both premolars and debride back to bleeding bone Complications: S/P Extraction of #32 Right mandible infection and right neck abscess Grossly mobile teeth # 31, 30, 29, 28 Operative Note: see dictation S/P Extraction of #32 Right mandible infection and right neck abscess Grossly mobile teeth # 31, 30, 29, 28 PEPE FOUNTAIN DMD Nov 09, 2019 17:51
--- NOTE | 2019-11-09 17:56 | PDOC ---
SUBJECTIVE Subjective S/P OR patient recovering in PACU OBJECTIVE Objective In OR found additional mobile teeth # 28, 29 Elected to extract these teeth as well, and debride back to bleeding bone. RAZ observed, intact / uninterrupted from sites #31-29/28 area all corticocancellous bone in this area was debrided. Vital Signs Vital Signs Date Time Temp Pulse Resp B/P (MAP) Pulse Ox O2 Delivery O2 Flow Rate FiO2 11/09/19 14:27 98.7 84 16 134/89 96 Room Air 98.7 11/09/19 11:00 98.7 113 18 160/83 (108) 96 Room Air 98.7 11/09/19 08:00 Room Air 11/09/19 07:00 99.1 90 18 152/89 (110) 96 Room Air 99.1 11/09/19 02:46 99.1 99 20 156/100 (118) 97 99.1 11/08/19 23:00 99.7 73 20 145/83 (103) 96 Room Air 99.7 11/08/19 20:00 Room Air 11/08/19 19:00 99.2 22 22 140/92 (108) 96 Room Air 99.2 I & O Intake and Output 11/09/19 07:00 Intake Total 1350 ml Output Total 400 ml Balance 950 ml Intake Oral 300 ml IV Total 1050 ml Output Urine Total 400 ml ASSESSMENT/PLAN Assessment/Plan 39 yom s/p OR intervention Plan to continue IV ABX NEED to consult Infectious Disease to work up patient / choose any ABX changes Will await cultures D/C NPO Patient can advance to soft mechanical diet Anticipate stay of 3-6 days Justicifation of Admission Dx: Justifications for Admission: Justification of Admission Dx: N/A Cellulitis: Cellulitis PEPE FOUNTAIN DMD Nov 09, 2019 17:56
[2019-11-09 19:00] VITALS: BP 136/90
--- NOTE | 2019-11-09 19:25 | OP ---
DATE OF SURGERY: 11/09/2019 OPERATING SERVICE: Oral Maxillofacial Surgery. ATTENDING PHYSICIAN: Timi Fountain DMD PREOPERATIVE DIAGNOSES: Right mandible and neck infection and grossly mobile teeth of his lower right mandible. POSTOPERATIVE DIAGNOSES. Right mandible and neck infection and grossly mobile teeth of his lower right mandible. PROCEDURES PERFORMED: Incision and drainage of right neck abscess, extraction of grossly mobile teeth numbers 28, 29, 30, 31, debridement of mandible, culture and specimen analysis of right neck and right mandible, debridement of right mandible back to bleeding bone. BRIEF HISTORY: The patient is a 39-year-old male who apparently had a tooth extracted by the dentist on the [facility] approximately 3 weeks ago, has had difficulty healing since then. He has had increasing pain and swelling over the last week and has failed oral antibiotics to resolve this problem. He was referred to our service and was admitted through the ER, had a scan demonstrated loculation in the right submandibular, right sublingual space and right linker up space and on exam, he had grossly mobile teeth 30, 31. Concern for mobile teeth as well 28 and 29. This became more apparent in the OR. Discussed the problem of these areas with the patient that there was likely extension of infection at the lower right mandible beyond the 3rd molar and he would need to remove these teeth and debride back to bleeding bone The patient was understanding with this plan. Permit was obtained. The patient was demonstrated understanding and all questions were answered with reference to his surgery. SPECIMEN SENT: Cultures #1 of the right neck, #2 and #3 were right mandible. Cultures for aerobe, anaerobe, Gram stain, AFB. His other specimens would have been permanent from right mandible to rule out squamous cell carcinoma or osteomyelitis of the right mandible. Teeth were disposed of in the OR. DRAINS PLACED: Two drains, one was a [place] through and through from the right submandibular Risdon incision to the submental area and then there was a red rubber catheter from the right Risdon incision in the neck, which ended in the area of the most prominent induration of the right linker up, submandibular area. COMPLICATIONS: No complications were noted at the time of surgery. ESTIMATED BLOOD LOSS: Approximately 100 mL ANESTHESIOLOGIST: Anesthesia was provided by Dr. Posey. OPERATIVE DESCRIPTION: Of note, intraoperatively due to the grossly mobile teeth #28 and 29 and the fact that the debridement was initiated at sites #30 and 31, but there was significant necrotic bone, and it continued to extend anteriorly towards teeth #29, and #28. It seemed that it would be prudent to continue the debridement and extract also 28, 29, I debrided the mandible more anteriorly to get ahead of the what appears to be aggressive osteomyelitis of the right mandible. OPERATIVE DESCRIPTION: After the history and physical was updated in the preoperative holding area, the patient was transported by the Anesthesia Service to the operating suite, placed in the supine position. General anesthesia was induced. All pressure points were checked and the patient was prepped and draped in normal sterile fashion. The patient was then intubated. The tube was secured to the upper right face with tape. The patient was marked and local anesthesia 0.5% Marcaine, 1:200,000 epinephrine and 5 mL were administered into the skin. An additional 15 mL were administered for a total of 20 mL of 0.5% Marcaine, 1:200,000 epinephrine were administered in all the surgical areas. He was marked for a submental incision, 2 cm right neck Risdon incision was placed in the skin crease, a 2 cm incisions were made with a 15 blade, taken through skin and subcutaneous tissue and platysma. Blunt dissection was utilized secured to the inferior border of the mandible without complication. These sites incision and drainage were then connected. These sites were then lavaged and suctioned with copious normal sterile saline. A Rishi drain was placed in through and through fashion and a red rubber catheter was cut, measured and secured also with a 3-0 silk into the most prominent area of the induration at the right submandibular and right linker up space. At this point in time, Drains were flushed and then attention was then directed to the intraoral cavity. A gauze was utilized as a pharyngeal curtain and teeth #30 and 31 were removed and the full-thickness mucoperiosteal flap was reflected buccally. The site was debrided and necrotic tissue was curetted out of the sites. Specimens were sent for permanent evaluation and culture. This also was concerning as teeth #28, 29 were also mobile and the debridement was aggressive. It was elected intraoperatively to additionally take out these teeth and to continue to debridement anteriorly at sites #28 and 29. It appeared that this was an excellent choice as the necrotic tissue extended anteriorly. Ultimately, it did terminate near tooth #27. We had gone beyond the limits and we found bleeding bone We had unroofed also the inferior alveolar nerve along its course between the sites of 30, 31, 28 and 29. This nerve appeared to be intact. Copious normal sterile saline was utilized to irrigate the wound. All areas that were not bleeding, so bony areas of the right mandible were debrided with hand instruments and with rotary instrumentation with copious normal sterile saline irrigation. Sites lavaged and suctioned and closed with a running locked 3-0 chromic gut sutures over right mandible and was found to be hemostatic. Oral cavity was lavaged and suctioned. An OG was passed and the stomach was then decompressed. The patient was then returned to the care of Anesthesia, where he was awakened and extubated without complication and transported to the PACU in stable condition. He will be worked up initially with Infectious Disease and we will follow his cultures and stay admitted for observation and development of plan to direct outcome. TIMI FOUNTAIN DMD DR: KIM/gissel JOB#: [id number] / [id number] MILLICENT
[2019-11-09] MEDS: LACTOBACILLUS RHAMNOSUS GG 1 CAPSULE. PO SCH (20:27)
[2019-11-09] MEDS: BACITRACIN/POLYMYXIN B OPHTH OINTMENT 3.5GM TUBE. OU SCH (20:44)
[2019-11-09] MEDS: KETOROLAC 30 MG/ML VIAL. IVP PRN (21:51)
[2019-11-09 23:00] VITALS: BP 133/67
[2019-11-10 03:00] VITALS: BP 113/68
[2019-11-10] MEDS: CLINDAMYCIN 900MG PREMIX 50 ML IV SCH (06:02)
[2019-11-10] MEDS: KETOROLAC 30 MG/ML VIAL. IVP PRN ×2 (06:02→19:49)
[2019-11-10] MEDS: IV RINGERS,LACTATED 1000ML 1,000 ML IV SCH ×2 (06:06→23:08)
[2019-11-10 06:51] LABS: BASO % 0 % (0-3); EOS % 0 % (0-3); HEMATOCRIT 40.3 % (39.0-53.0); HEMOGLOBIN 13.6 g/dL (13.0-17.5); LYMPH # 1.2 x10^3/uL (1.0-4.8); LYMPH % 11 % (24-48); MEAN CORPUSCULAR HEMOGLOBIN 30 pg (25-35); MEAN CORPUSCULAR HGB CONC 34 g/dL (31-37); MEAN CORPUSCULAR VOLUME 90 fL (79-100); MONO % 8 % (0-9); NEUT # 9.6 x10^3/uL (1.8-7.7); NEUT % 81 % (31-73); PLATELET COUNT 471 x10^3/uL (140-400); RED CELL DISTRIBUTION WIDTH 13.2 % (11.5-14.5); WHITE BLOOD COUNT 11.8 x10^3/uL (4.0-11.0)
[2019-11-10 07:00] VITALS: BP 132/82
[2019-11-10 07:05] LABS: CALCIUM 8.6 mg/dL (8.5-10.1); GFR 82.8; POTASSIUM 4.5 mmol/L (3.5-5.1)
[2019-11-10] MEDS: LACTOBACILLUS RHAMNOSUS GG 1 CAPSULE. PO SCH ×2 (09:46→19:57)
[2019-11-10] MEDS: BACITRACIN/POLYMYXIN B OPHTH OINTMENT 3.5GM TUBE. OU SCH ×2 (09:46→19:57)
--- NOTE | 2019-11-10 09:53 | PDOC ---
Infectious Disease Note Vital Sign Vital Signs Vital Signs Date Time Temp Pulse Resp B/P (MAP) Pulse Ox O2 Delivery O2 Flow Rate FiO2 11/10/19 07:00 98.0 72 20 132/82 (99) 96 Room Air 98.0 11/09/19 18:34 2 Labs Lab Laboratory Tests Test 11/10/19 05:25 White Blood Count 11.8 x10^3/uL (4.0-11.0) Red Blood Count 4.50 x10^6/uL (4.30-5.70) Hemoglobin 13.6 g/dL (13.0-17.5) Hematocrit 40.3 % (39.0-53.0) Mean Corpuscular Volume 90 fL (79-100) Mean Corpuscular Hemoglobin 30 pg (25-35) Mean Corpuscular Hemoglobin Concent 34 g/dL (31-37) Red Cell Distribution Width 13.2 % (11.5-14.5) Platelet Count 471 x10^3/uL (140-400) Neutrophils (%) (Auto) 81 % (31-73) Lymphocytes (%) (Auto) 11 % (24-48) Monocytes (%) (Auto) 8 % (0-9) Eosinophils (%) (Auto) 0 % (0-3) Basophils (%) (Auto) 0 % (0-3) Neutrophils # (Auto) 9.6 x10^3/uL (1.8-7.7) Lymphocytes # (Auto) 1.2 x10^3/uL (1.0-4.8) Monocytes # (Auto) 1.0 x10^3/uL (0.0-1.1) Eosinophils # (Auto) 0.0 x10^3/uL (0.0-0.7) Basophils # (Auto) 0.0 x10^3/uL (0.0-0.2) Sodium Level 139 mmol/L (136-145) Potassium Level 4.5 mmol/L (3.5-5.1) Chloride Level 103 mmol/L (98-107) Carbon Dioxide Level 25 mmol/L (21-32) Anion Gap 11 (6-14) Blood Urea Nitrogen 14 mg/dL (8-26) Creatinine 1.0 mg/dL (0.7-1.3) Estimated GFR (Cockcroft-Gault) 82.8 Glucose Level 113 mg/dL (70-99) Calcium Level 8.6 mg/dL (8.5-10.1) Objective Assessment Leukocytosis s/p Solumedrol 11/08 and post - op Dental abscess R facial cellulitis osteomyelitis of the right mandible- based on op report 11/08 Plan Plan of Care D/c Clinda Begin Unasyn PICC line F/u labs and cults D/w Grace nurse who assisted with translation Thank you # [id number] BRITTNEY BARBOSA MD Nov 10, 2019 09:53
[2019-11-10 10:45] VITALS: BP 128/85
--- NOTE | 2019-11-10 10:58 | CONS ---
DATE OF CONSULTATION: 11/10/2019 LOCATION: The patient is in room 416. REQUESTING PHYSICIAN: Timi Contreras DMD. REASON FOR CONSULTATION: Jaw osteomyelitis. HISTORY OF PRESENT ILLNESS: The patient is a 39-year-old gentleman from [place], who immigrated to [facility] in 1997; however, he has been incarcerated since 2011. He had undergone extraction of some teeth previously, but about 2 or 3 weeks ago, continued to have swelling and pain of the lower right mandible as well as some numbness of his lip. He was not having any gross fevers or chills or sweats. He underwent a CT scan of soft tissue of his neck without contrast, showed a right lower facial cellulitis with thin collection extending along the buccal surface of the mandible measuring 3 mm in thickness and 2 cm in length, suspicious for an abscess. He was admitted to the hospital and placed on IV clindamycin, but was taken to the operating room by Dr. Contreras. He debrided along the mandible in the anterior and was seen to have what appeared to be aggressive osteomyelitis of the right mandible. Hence, I have been consulted. Currently, the patient is sitting up in chair. He denies any fevers, chills, sweats. He has no headaches. He did have a liquid meal this morning. Obviously, he has some discomfort and some swelling of his lower jaw. He has no shortness of air, no cough, no wheeze. No nausea, vomiting. No dysuria, frequency, rashes, and passing his urine okay. PAST MEDICAL HISTORY: Essentially negative. PAST SURGICAL HISTORY: Positive for the above-mentioned procedures as well as appendectomy. REVIEW OF SYSTEMS: Otherwise negative. ALLERGIES: No known drug allergies. SOCIAL HISTORY: He is a former smoker. He is from [place], has been incarcerated since 2011. FAMILY HISTORY: Noncontributory. CURRENT MEDICATIONS: Include clindamycin, bacitracin, Lovenox, lactobacillus, and he did receive dexamethasone on the day of surgery. PHYSICAL EXAMINATION: VITAL SIGNS: Temperature 98, pulse 72, respirations 20, blood pressure 132/82, satting 96% on room air. CONSTITUTIONAL: He is alert. He is sitting upright in bed. He is in no acute distress. He is on some nasal cannula oxygen. HEENT: Oral cavity, oropharynx is without signs of thrush. Incisions along the right lower gumline appears to be intact. His jaw has some swelling associated with the Penroses in place. No gross erythema. NECK: Supple. No JVD. LUNGS: Clear to auscultation bilaterally. HEART: S1, S2. ABDOMEN: Soft, nontender. Positive bowel sounds. EXTREMITIES: No clubbing, cyanosis, or gross edema. SKIN: Warm to touch without generalized signs of rash. NEUROLOGIC: Nonfocal, answers questions, moves all extremities. PSYCHIATRIC: Affect is somewhat flat. LABORATORY VALUES: White count 11.8, hemoglobin 13.6, platelets of 471, neutrophils 81. Creatinine 1.0, glucose is 113. AST was 39, ALT 55. COVID is negative. RADIOLOGY: Reviewed in the history of present illness. IMPRESSION: 1. Leukocytosis, status post Solu-Medrol on 11/08 and also postoperative. 2. Dental abscess. 3. Right facial cellulitis. 4. Osteomyelitis, right mandible based on operative report in 11/08. RECOMMENDATIONS: We will discontinue the clindamycin. Begin Unasyn. Obtain a PICC line. Follow up labs and cultures. This was discussed with nurse Grace, who assisted with translation as well. Thank you for allowing me to participate in the patient's care. If you have any further questions, please do not hesitate to contact me. BRITTNEY BARBOSA MD DR: ALONZO/gissel JOB#: [id number] / [id number]
--- NOTE | 2019-11-10 12:09 | PDOC ---
PROGRESS NOTES Chief Complaint Chief Complaint Swelling and pain of lower right mandible, persistent following extraction of #32 Numbness of lower right lip (CN V Div III) History of Present Illness History of Present Illness 11/09, still pain, swelling, bleeding, drainage from jaw will try PO pain meds, po intake as able 2 guards in room 11/09/19 Pt seen and examined with guards in the room Chart reviewed Discussed with RN Vitals Vitals Vital Signs Date Time Temp Pulse Resp B/P (MAP) Pulse Ox O2 Delivery O2 Flow Rate FiO2 11/10/19 10:45 98.8 69 18 128/85 (99) 97 Room Air 98.8 11/09/19 18:34 2 Physical Exam General: Alert, Oriented X3, No acute distress Heart: Regular rate, Normal S1 Lungs: Clear Abdomen: Soft, No tenderness Extremities: No clubbing, No cyanosis, No edema Skin: No rashes, No significant lesion Labs LABS Laboratory Tests Test 11/10/19 05:25 White Blood Count 11.8 x10^3/uL (4.0-11.0) Red Blood Count 4.50 x10^6/uL (4.30-5.70) Hemoglobin 13.6 g/dL (13.0-17.5) Hematocrit 40.3 % (39.0-53.0) Mean Corpuscular Volume 90 fL (79-100) Mean Corpuscular Hemoglobin 30 pg (25-35) Mean Corpuscular Hemoglobin Concent 34 g/dL (31-37) Red Cell Distribution Width 13.2 % (11.5-14.5) Platelet Count 471 x10^3/uL (140-400) Neutrophils (%) (Auto) 81 % (31-73) Lymphocytes (%) (Auto) 11 % (24-48) Monocytes (%) (Auto) 8 % (0-9) Eosinophils (%) (Auto) 0 % (0-3) Basophils (%) (Auto) 0 % (0-3) Neutrophils # (Auto) 9.6 x10^3/uL (1.8-7.7) Lymphocytes # (Auto) 1.2 x10^3/uL (1.0-4.8) Monocytes # (Auto) 1.0 x10^3/uL (0.0-1.1) Eosinophils # (Auto) 0.0 x10^3/uL (0.0-0.7) Basophils # (Auto) 0.0 x10^3/uL (0.0-0.2) Sodium Level 139 mmol/L (136-145) Potassium Level 4.5 mmol/L (3.5-5.1) Chloride Level 103 mmol/L (98-107) Carbon Dioxide Level 25 mmol/L (21-32) Anion Gap 11 (6-14) Blood Urea Nitrogen 14 mg/dL (8-26) Creatinine 1.0 mg/dL (0.7-1.3) Estimated GFR (Cockcroft-Gault) 82.8 Glucose Level 113 mg/dL (70-99) Calcium Level 8.6 mg/dL (8.5-10.1) Assessment and Plan Assessmemt and Plan Problems Medical Problems: (1) Dental abscess Status: Acute Comment Review of Relevant I have reviewed the following items shereen (where applicable) has been applied. Labs Laboratory Tests Test 11/08/19 12:50 11/10/19 05:25 SARS-CoV-2 Antigen (Rapid) Negative (NEGATIVE) White Blood Count 11.8 x10^3/uL (4.0-11.0) Red Blood Count 4.50 x10^6/uL (4.30-5.70) Hemoglobin 13.6 g/dL (13.0-17.5) Hematocrit 40.3 % (39.0-53.0) Mean Corpuscular Volume 90 fL (79-100) Mean Corpuscular Hemoglobin 30 pg (25-35) Mean Corpuscular Hemoglobin Concent 34 g/dL (31-37) Red Cell Distribution Width 13.2 % (11.5-14.5) Platelet Count 471 x10^3/uL (140-400) Neutrophils (%) (Auto) 81 % (31-73) Lymphocytes (%) (Auto) 11 % (24-48) Monocytes (%) (Auto) 8 % (0-9) Eosinophils (%) (Auto) 0 % (0-3) Basophils (%) (Auto) 0 % (0-3) Neutrophils # (Auto) 9.6 x10^3/uL (1.8-7.7) Lymphocytes # (Auto) 1.2 x10^3/uL (1.0-4.8) Monocytes # (Auto) 1.0 x10^3/uL (0.0-1.1) Eosinophils # (Auto) 0.0 x10^3/uL (0.0-0.7) Basophils # (Auto) 0.0 x10^3/uL (0.0-0.2) Sodium Level 139 mmol/L (136-145) Potassium Level 4.5 mmol/L (3.5-5.1) Chloride Level 103 mmol/L (98-107) Carbon Dioxide Level 25 mmol/L (21-32) Anion Gap 11 (6-14) Blood Urea Nitrogen 14 mg/dL (8-26) Creatinine 1.0 mg/dL (0.7-1.3) Estimated GFR (Cockcroft-Gault) 82.8 Glucose Level 113 mg/dL (70-99) Calcium Level 8.6 mg/dL (8.5-10.1) Laboratory Tests Test 11/10/19 05:25 White Blood Count 11.8 x10^3/uL (4.0-11.0) Red Blood Count 4.50 x10^6/uL (4.30-5.70) Hemoglobin 13.6 g/dL (13.0-17.5) Hematocrit 40.3 % (39.0-53.0) Mean Corpuscular Volume 90 fL (79-100) Mean Corpuscular Hemoglobin 30 pg (25-35) Mean Corpuscular Hemoglobin Concent 34 g/dL (31-37) Red Cell Distribution Width 13.2 % (11.5-14.5) Platelet Count 471 x10^3/uL (140-400) Neutrophils (%) (Auto) 81 % (31-73) Lymphocytes (%) (Auto) 11 % (24-48) Monocytes (%) (Auto) 8 % (0-9) Eosinophils (%) (Auto) 0 % (0-3) Basophils (%) (Auto) 0 % (0-3) Neutrophils # (Auto) 9.6 x10^3/uL (1.8-7.7) Lymphocytes # (Auto) 1.2 x10^3/uL (1.0-4.8) Monocytes # (Auto) 1.0 x10^3/uL (0.0-1.1) Eosinophils # (Auto) 0.0 x10^3/uL (0.0-0.7) Basophils # (Auto) 0.0 x10^3/uL (0.0-0.2) Sodium Level 139 mmol/L (136-145) Potassium Level 4.5 mmol/L (3.5-5.1) Chloride Level 103 mmol/L (98-107) Carbon Dioxide Level 25 mmol/L (21-32) Anion Gap 11 (6-14) Blood Urea Nitrogen 14 mg/dL (8-26) Creatinine 1.0 mg/dL (0.7-1.3) Estimated GFR (Cockcroft-Gault) 82.8 Glucose Level 113 mg/dL (70-99) Calcium Level 8.6 mg/dL (8.5-10.1) Medications Current Medications Clindamycin Phosphate 50 ml @ 100 mls/hr Q8HRS IV Last administered on 11/10/19at 06:02; Start 11/08/19 at 16:00; Stop 11/10/19 at 09:47; Status DC Sodium Chloride 1,000 ml @ 1,000 mls/hr 1X ONCE IV Last administered on 11/08/19at 10:10; Start 11/08/19 at 09:00; Stop 11/08/19 at 09:59; Status DC Clindamycin Phosphate 50 ml @ 100 mls/hr 1X ONCE IV Last administered on 11/08/19at 10:12; Start 11/08/19 at 09:30; Stop 11/08/19 at 09:59; Status DC Morphine Sulfate (Morphine Sulfate) 4 mg 1X ONCE IV Last administered on 11/08/19at 10:23; Start 11/08/19 at 10:15; Stop 11/08/19 at 10:16; Status DC Ondansetron HCl (Zofran) 4 mg PRN Q8HRS PRN IV NAUSEA/VOMITING Last administered on 11/08/19at 10:54; Start 11/08/19 at 10:30; Stop 11/09/19 at 10:29; Status DC Morphine Sulfate (Morphine Sulfate) 4 mg QIDPRN PRN IV PAIN Last administered on 11/08/19at 10:54; Start 11/08/19 at 10:30; Stop 11/09/19 at 10:29; Status DC Sodium Chloride 1,000 ml @ 100 mls/hr Q10H IV Last administered on 11/09/19at 06:00; Start 11/08/19 at 10:24; Stop 11/09/19 at 10:23; Status DC Iohexol (Omnipaque 300 Mg/ml) 75 ml 1X ONCE IV Last administered on 11/08/19at 10:51; Start 11/08/19 at 10:45; Stop 11/08/19 at 10:46; Status DC Info (CONTRAST GIVEN -- Rx MONITORING) 1 each PRN DAILY PRN MC SEE COMMENTS; Start 11/08/19 at 10:45; Stop 11/10/19 at 10:44; Status DC Enoxaparin Sodium (Lovenox 40mg Syringe) 40 mg Q24H SQ Last administered on 11/08/19at 16:38; Start 11/08/19 at 17:00 Ketorolac Tromethamine (Toradol 30mg Vial) 30 mg PRN Q6HRS PRN IVP MILD PAIN 1- 3 Last administered on 11/10/19at 06:02; Start 11/08/19 at 16:00; Stop 11/13/19 at 15:59 Lactobacillus Rhamnosus (Culturelle) 1 cap BID PO Last administered on 11/10/19at 09:46; Start 11/09/19 at 21:00 Fentanyl Citrate (Fentanyl 2ml Vial) 100 mcg STK-MED ONCE .ROUTE ; Start 11/09/19 at 15:08; Stop 11/09/19 at 15:08; Status DC Neostigmine Methylsulfate (Bloxiverz) 10 mg STK-MED ONCE .ROUTE ; Start 11/09/19 at 15:08; Stop 11/09/19 at 15:08; Status DC Rocuronium [place] (Zemuron) 50 mg STK-MED ONCE .ROUTE ; Start 11/09/19 at 15:08; Stop 11/09/19 at 15:09; Status DC Midazolam HCl (Versed) 2 mg STK-MED ONCE .ROUTE ; Start 11/09/19 at 15:09; Stop 11/09/19 at 15:09; Status DC Lidocaine HCl (Lidocaine Pf 2% Vial) 5 ml STK-MED ONCE .ROUTE ; Start 11/09/19 at 15:09; Stop 11/09/19 at 15:09; Status DC Propofol (Diprivan) 200 mg STK-MED ONCE IV ; Start 11/09/19 at 15:09; Stop 11/09/19 at 15:09; Status DC Dexamethasone Sodium Phosphate (Decadron) 4 mg STK-MED ONCE .ROUTE ; Start 11/09/19 at 15:09; Stop 11/09/19 at 15:09; Status DC Ondansetron HCl (Zofran) 4 mg STK-MED ONCE .ROUTE ; Start 11/09/19 at 15:09; Stop 11/09/19 at 15:09; Status DC Gelatin (Gelfoam Size 100) 1 each STK-MED ONCE .ROUTE ; Start 11/09/19 at 15:53; Stop 11/09/19 at 15:54; Status DC Bupivacaine HCl/ Epinephrine Bitart (Sensorcain-Epi 0.5%-1:[id number] Mpf) 30 ml STK-MED ONCE .ROUTE Last administered on 11/09/19at 16:30; Start 11/09/19 at 15:53; Stop 11/09/19 at 15:54; Status DC Chlorhexidine Gluconate (Peridex) 15 ml STK-MED ONCE .ROUTE ; Start 11/09/19 at 15:53; Stop 11/09/19 at 15:54; Status DC Glycopyrrolate (Robinul) 1 mg STK-MED ONCE .ROUTE ; Start 11/09/19 at 16:31; Stop 11/09/19 at 16:32; Status DC Fentanyl Citrate (Fentanyl 2ml Vial) 100 mcg STK-MED ONCE .ROUTE ; Start at 16:39; Stop 11/09/19 at 16:39; Status DC Fentanyl Citrate (Fentanyl 2ml Vial) 100 mcg STK-MED ONCE .ROUTE ; Start 10/13 12/01 at 16:48; Stop 11/09/19 at 16:48; Status DC Fentanyl Citrate (Fentanyl 2ml Vial) 100 mcg STK-MED ONCE .ROUTE ; Start 11/08 at 17:45; Stop 11/09/19 at 17:46; Status DC Bacitracin/ Polymyxin B Sulfate (Polysporin Ophth) 0.25 inch BID OU Last admin istered on 11/10/19at 09:46; Start 11/09/19 at 21:00 Ringer's Solution 1,000 ml @ 75 mls/hr [id number] IV Last administered on 10/13 01/01at 06:06; Start 11/09/19 at 17:45 Ampicillin Sodium/ Sulbactam Sodium 3 gm/Sodium Chloride 100 ml @ 200 mls/hr Q6HRS IV ; Start 11/10/19 at 12:00 Oxycodone/ Acetaminophen (Percocet 5/325) 1 tab PRN Q4HRS PRN PO PAIN; Start 11/10/19 at 10:15 Morphine Sulfate (Morphine Sulfate) 4 mg PRN Q4HRS PRN IV MODERATE-SEVERE PAIN; Start 11/10/19 at 10:15 Active Scripts Active Reported No Known Medications Prior To Admisstion (Info) Each 1 Each UNKNOWN Vitals/I & O Vital Sign - Last 24 Hours 11/09/19 11/09/19 11/09/19 11/09/19 14:27 17:49 18:04 18:06 Temp 98.7 99.5 99.5 98.7 99.5 99.5 Pulse 84 95 94 Resp 16 24 24 B/P (MAP) 134/89 133/81 124/84 Pulse Ox 96 96 95 O2 Delivery Room Air Simple Mask Simple Mask Mask O2 Flow Rate 10 10 10 11/09/19 11/09/19 11/09/19 11/09/19 18:19 18:34 19:00 20:00 Temp 99.5 98.5 98.8 99.5 98.5 98.8 Pulse 91 84 95 Resp 21 B/P (MAP) 130/84 128/80 136/90 (105) Pulse Ox 92 98 95 O2 Delivery Nasal Cannula Nasal Cannula Room Air Room Air O2 Flow Rate 2 2 11/09/19 11/10/19 11/10/19 11/10/19 23:00 03:00 07:00 10:45 Temp 98.5 98.4 98.0 98.8 98.5 98.4 98.0 98.8 Pulse 78 63 72 69 Resp 22 18 20 18 B/P (MAP) 133/67 (89) 113/68 (83) 132/82 (99) 128/85 (99) Pulse Ox 95 94 96 97 O2 Delivery Room Air Room Air Room Air Room Air Intake and Output 711/09/19 11/10/19 15:00 23:00 07:00 Intake Total 820 ml 850 ml Output Total 800 ml 350 ml Balance 20 ml 500 ml Justicifation of Admission Dx: Justifications for Admission: Justification of Admission Dx: N/A Cellulitis: Cellulitis YUAN MONACO MD Nov 10, 2019 12:09
[2019-11-10] MEDS: MORPHINE SULFATE 4 MG/ML VIAL. IV PRN ×2 (13:04→18:02)
[2019-11-10] MEDS: AMPICILLIN/SULBACTAM 3 GM in IV NORMAL SALINE 100ML 100 ML IV SCH ×3 (13:05→23:09)
[2019-11-10 14:49] VITALS: BP 132/79
[2019-11-10] MEDS ORDERED: LIDOCAINE WITH 8.4% SOD BICARB 3 ML DISP.SYRIN. ONE (14:58)
[2019-11-10] MEDS ORDERED: LIDOCAINE WITH 8.4% SOD BICARB 3 ML DISP.SYRIN. INJ ONE (15:15)
--- NOTE | 2019-11-10 16:08 | RAD ---
Exam: Fluoroscopic and ultrasound guided right percutaneous inserted central venous catheter placement 11/10/2019 2:05 PM .Indication: [facility] antibiotics Technique: Informed oral and written consent were obtained. The right upper extremity was prepped and draped using sterile barrier technique. All elements of maximal sterile barrier technique including the use of a cap, mask, sterile gown, sterile gloves, large sterile sheet, appropriate hand hygiene, and 2% chlorhexidine for cutaneous antisepsis (or acceptable alternative antiseptic per current guidelines) were followed for this procedure.. Real-time ultrasound demonstrated a patent right basilic vein which was prepped and draped in usual sterile fashion. 1% lidocaine used for local anesthesia. Using real-time ultrasound guidance the access needle percutaneously punctured the selected right basilic vein. Reference ultrasound images were saved to the medical record. A guidewire was advanced through the needle to the cavoatrial junction, and a peel-away sheath placed. The catheter was cut to length and inserted through the peel-away sheath such that its tip is at the cavoatrial junction. The wire and sheath were removed, and the catheter secured in place, and a sterile dressing was applied. Catheter was found to flush and aspirate normally. No immediate complications are identified. FLUORO TIME: 0.5 DOSE AREA PRODUCT: 0.5 Gycm2 Impression: Ultrasound and fluoroscopically guided placement of a right upper extremity PICC line.
[2019-11-10] MEDS: ENOXAPARIN 40 MG/0.4 ML SYRINGE. SQ SCH (18:03)
--- NOTE | 2019-11-10 18:47 | PDOC ---
GENERAL General: 11/10/2019 AAO X 3 NAEO patient recovering ID consulted, PICC line placed, IV Unasyn started D/C clindamycin Pain manangement morphine has been most effective VITAL SIGNS Vital Signs/I&O: Vital Signs Date Time Temp Pulse Resp B/P (MAP) Pulse Ox O2 Delivery O2 Flow Rate FiO2 11/10/19 18:32 Room Air 11/10/19 14:49 98.4 72 18 132/79 (96) 98 98.4 11/10/19 08:00 2.0 I & O 11/09/19 11/09/19 11/10/19 14:59 22:59 06:59 Intake Total 820 ml 850 ml Output Total 800 ml 350 ml Balance 20 ml 500 ml ALLERGIES Allergies: Allergies Coded Allergies Type Severity Reaction Last Updated Verified No Known Drug Allergies 11/08/19 No MEDS Medications: Current Medications Medications (Trade) Dose Ordered Sig/Viki Route PRN Reason Start Time Stop Time Status Last Admin Dose Admin Lactobacillus Rhamnosus (Culturelle) 1 cap BID PO 11/09/19 21:00 11/10/19 09:46 Bacitracin/ Polymyxin B Sulfate (Polysporin Ophth) 0.25 inch BID OU 11/09/19 21:00 11/10/19 09:46 Ampicillin Sodium/ Sulbactam Sodium 3 gm/Sodium Chloride 100 ml @ 200 mls/hr Q6HRS IV 11/10/19 12:00 11/10/19 18:03 Morphine Sulfate (Morphine Sulfate) 4 mg PRN Q4HRS PRN IV MODERATE-SEVERE PAIN 11/10/19 10:15 11/10/19 18:02 Lidocaine HCl (Buffered Lidocaine 1%) 6 ml 1X ONCE INJ 11/10/19 15:15 11/10/19 15:16 DC 11/10/19 15:22 LAB Lab: Laboratory Tests Test 11/10/19 05:25 White Blood Count 11.8 x10^3/uL (4.0-11.0) H Red Blood Count 4.50 x10^6/uL (4.30-5.70) Hemoglobin 13.6 g/dL (13.0-17.5) Hematocrit 40.3 % (39.0-53.0) Mean Corpuscular Volume 90 fL (79-100) Mean Corpuscular Hemoglobin 30 pg (25-35) Mean Corpuscular Hemoglobin Concent 34 g/dL (31-37) Red Cell Distribution Width 13.2 % (11.5-14.5) Platelet Count 471 x10^3/uL (140-400) H Neutrophils (%) (Auto) 81 % (31-73) H Lymphocytes (%) (Auto) 11 % (24-48) L Monocytes (%) (Auto) 8 % (0-9) Eosinophils (%) (Auto) 0 % (0-3) Basophils (%) (Auto) 0 % (0-3) Neutrophils # (Auto) 9.6 x10^3/uL (1.8-7.7) H Lymphocytes # (Auto) 1.2 x10^3/uL (1.0-4.8) Monocytes # (Auto) 1.0 x10^3/uL (0.0-1.1) Eosinophils # (Auto) 0.0 x10^3/uL (0.0-0.7) Basophils # (Auto) 0.0 x10^3/uL (0.0-0.2) Sodium Level 139 mmol/L (136-145) Potassium Level 4.5 mmol/L (3.5-5.1) Chloride Level 103 mmol/L (98-107) Carbon Dioxide Level 25 mmol/L (21-32) Anion Gap 11 (6-14) Blood Urea Nitrogen 14 mg/dL (8-26) Creatinine 1.0 mg/dL (0.7-1.3) Estimated GFR (Cockcroft-Gault) 82.8 Glucose Level 113 mg/dL (70-99) H Calcium Level 8.6 mg/dL (8.5-10.1) Laboratory Tests 11/10/19 05:25 Laboratory Tests 11/10/19 05:25 ASSESSMENT & PLAN A&P 39 yom s/p extraction #32 with worsening infection and soft tissue and lower right mandible infection Possible lower right osteomyelitis HD 3 POD 1 Patient is stable, having some difficulty with pain control plan to continue IV Morphine/ ketorolac / PO Percocet Appreciate ID consult and placement of PICC line and guidance with IV ABX Plan to irrigate drains BID Plan d/c drains Saturday 11/11 Awaiting cultures, and permanent pathology from lower right mandible to document osteomyelitis, or document other pathology (SCC or other) Once pathology has been finalized, plan to coordinate d/c back to facility continue Soft mechanical diet. Will continue to see daily. Please contact me with any questions or concerns Justicifation of Admission Dx: Justifications for Admission: Justification of Admission Dx: Yes (Culture / IV ABX / Surgical debridement) Cellulitis: Cellulitis PEPE FOUNTAIN DMD Nov 10, 2019 18:47
[2019-11-10 19:00] VITALS: BP 133/85
[2019-11-10 23:05] VITALS: BP 112/73
[2019-11-10] MEDS: oxyCODONE/APAP 5/325 1 TAB TABLET PO PRN (23:15)
[2019-11-11] VITALS (7 sets, daily range): BP systolic 109–136; BP diastolic 74–95
[2019-11-11] MEDS: AMPICILLIN/SULBACTAM 3 GM in IV NORMAL SALINE 100ML 100 ML IV SCH ×3 (05:37→17:21)
[2019-11-11] MEDS: KETOROLAC 30 MG/ML VIAL. IVP PRN ×2 (05:48→17:20)
[2019-11-11 05:53] LABS: BASO # 0.1 x10^3/uL (0.0-0.2); BASO % 1 % (0-3); EOS # 0.3 x10^3/uL (0.0-0.7); EOS % 3 % (0-3); HEMATOCRIT 38.5 % (39.0-53.0); HEMOGLOBIN 13.6 g/dL (13.0-17.5); LYMPH % 21 % (24-48); MEAN CORPUSCULAR HEMOGLOBIN 32 pg (25-35); MEAN CORPUSCULAR HGB CONC 36 g/dL (31-37); MEAN CORPUSCULAR VOLUME 90 fL (79-100); MONO # 1.1 x10^3/uL (0.0-1.1); MONO % 12 % (0-9); NEUT # 5.8 x10^3/uL (1.8-7.7); NEUT % 63 % (31-73); PLATELET COUNT 503 x10^3/uL (140-400); RED BLOOD COUNT 4.26 x10^6/uL (4.30-5.70); WHITE BLOOD COUNT 9.2 x10^3/uL (4.0-11.0)
[2019-11-11 06:13] LABS: CALCIUM 8.4 mg/dL (8.5-10.1); CREATININE 0.9 mg/dL (0.7-1.3); GFR 93.5; POTASSIUM 3.7 mmol/L (3.5-5.1)
[2019-11-11] MEDS: IV RINGERS,LACTATED 1000ML 1,000 ML IV SCH ×2 (07:29→21:23)
--- NOTE | 2019-11-11 08:57 | PDOC ---
Infectious Disease Note Subjective Subjective Doing ok. Eating better No F/C/S/N/V/D ROS ROS o/w neg Vital Sign Vital Signs Vital Signs Date Time Temp Pulse Resp B/P (MAP) Pulse Ox O2 Delivery O2 Flow Rate FiO2 11/11/19 08:46 98.0 80 18 122/85 (97) 94 Room Air 98.0 11/10/19 08:00 2.0 Physical Exam PHYSICAL EXAM CONSTITUTIONAL: He is alert. He is sitting upright in bed. He is in no acute distress. He is on some nasal cannula oxygen. HEENT: Oral cavity, oropharynx is without signs of thrush. Incisions along the right lower gumline appears to be intact. His jaw has less swelling associated with the Penroses in place. No gross erythema. NECK: Supple. No JVD. LUNGS: Clear to auscultation bilaterally. HEART: S1, S2. ABDOMEN: Soft, nontender. Positive bowel sounds. : glans with brown macular freckle - no swelling/NT/no drainge/warmth EXTREMITIES: No clubbing, cyanosis, or gross edema. SKIN: Warm to touch without generalized signs of rash. NEUROLOGIC: Nonfocal, answers questions, moves all extremities. PSYCHIATRIC: Affect is somewhat flat. E PICC clean Labs Lab Laboratory Tests Test 11/11/19 04:55 White Blood Count 9.2 x10^3/uL (4.0-11.0) Red Blood Count 4.26 x10^6/uL (4.30-5.70) Hemoglobin 13.6 g/dL (13.0-17.5) Hematocrit 38.5 % (39.0-53.0) Mean Corpuscular Volume 90 fL (79-100) Mean Corpuscular Hemoglobin 32 pg (25-35) Mean Corpuscular Hemoglobin Concent 36 g/dL (31-37) Red Cell Distribution Width 13.0 % (11.5-14.5) Platelet Count 503 x10^3/uL (140-400) Neutrophils (%) (Auto) 63 % (31-73) Lymphocytes (%) (Auto) 21 % (24-48) Monocytes (%) (Auto) 12 % (0-9) Eosinophils (%) (Auto) 3 % (0-3) Basophils (%) (Auto) 1 % (0-3) Neutrophils # (Auto) 5.8 x10^3/uL (1.8-7.7) Lymphocytes # (Auto) 2.0 x10^3/uL (1.0-4.8) Monocytes # (Auto) 1.1 x10^3/uL (0.0-1.1) Eosinophils # (Auto) 0.3 x10^3/uL (0.0-0.7) Basophils # (Auto) 0.1 x10^3/uL (0.0-0.2) Sodium Level 140 mmol/L (136-145) Potassium Level 3.7 mmol/L (3.5-5.1) Chloride Level 105 mmol/L (98-107) Carbon Dioxide Level 27 mmol/L (21-32) Anion Gap 8 (6-14) Blood Urea Nitrogen 12 mg/dL (8-26) Creatinine 0.9 mg/dL (0.7-1.3) Estimated GFR (Cockcroft-Gault) 93.5 Glucose Level 97 mg/dL (70-99) Calcium Level 8.4 mg/dL (8.5-10.1) Micro Microbiology 11/09/19 Gram Stain - Final, Resulted 11/09/19 Aerobic and Anaerobic Culture, Resulted Pending Objective Assessment Leukocytosis s/p Solumedrol 11/08 and post - op -better Dental abscess - cults neg so far R facial cellulitis osteomyelitis of the right mandible- based on op report 11/08 Plan Plan of Care Cont Unasyn if cannot be given at facility then can us Invanz 1 gm daily if cults do not dictate need for other meds IV abx for 4 weeks min F/u labs and cults D/w Dr. Dickerson D/w Grace nurse who assisted with translation BRITTNEY BARBOSA MD Nov 11, 2019 08:57
[2019-11-11] MEDS: BACITRACIN/POLYMYXIN B OPHTH OINTMENT 3.5GM TUBE. OU SCH ×2 (10:14→21:26)
[2019-11-11] MEDS: MORPHINE SULFATE 4 MG/ML VIAL. IV PRN ×2 (10:14→21:18)
[2019-11-11] MEDS: LACTOBACILLUS RHAMNOSUS GG 1 CAPSULE. PO SCH ×2 (10:15→21:17)
--- NOTE | 2019-11-11 11:23 | PDOC ---
PROGRESS NOTES Chief Complaint Chief Complaint Swelling and pain of lower right mandible, persistent following extraction of #32 Numbness of lower right lip (CN V Div III) History of Present Illness History of Present Illness 11/10, had questions after my visit yesterday about if his epididys is normal and about a small melanosis discoloration on his glans penis. exam was normal. today, had questions about leg pain after falling from a tree as a child, and this pain inhibits him from doing burpee exercises in [facility]. I had to explain to him that burpees are almost excessive exercise at his age, and if he is able to complete, no medical workup is currently neccessary. 11/09, still pain, swelling, bleeding, drainage from jaw will try PO pain meds, po intake as able 2 guards in room 11/09/19 Pt seen and examined with guards in the room Chart reviewed Discussed with RN Vitals Vitals Vital Signs Date Time Temp Pulse Resp B/P (MAP) Pulse Ox O2 Delivery O2 Flow Rate FiO2 11/11/19 10:44 Room Air 11/11/19 08:46 98.0 80 18 122/85 (97) 94 98.0 11/10/19 08:00 2.0 Physical Exam Physical Exam CONSTITUTIONAL: He is alert. He is sitting upright in bed. He is in no acute distress. He is on some nasal cannula oxygen. HEENT: Oral cavity, oropharynx is without signs of thrush. Incisions along the right lower gumline appears to be intact. His jaw has less swelling associated with the Penroses in place. No gross erythema. NECK: Supple. No JVD. LUNGS: Clear to auscultation bilaterally. HEART: S1, S2. ABDOMEN: Soft, nontender. Positive bowel sounds. : glans with brown macular freckle - no swelling/NT/no drainge/warmth EXTREMITIES: No clubbing, cyanosis, or gross edema. SKIN: Warm to touch without generalized signs of rash. NEUROLOGIC: Nonfocal, answers questions, moves all extremities. PSYCHIATRIC: Affect is somewhat flat. RUE PICC clean General: Alert, Oriented X3, No acute distress Heart: Regular rate, Normal S1 Lungs: Clear Abdomen: Soft, No tenderness Extremities: No clubbing, No cyanosis, No edema Skin: No rashes, No significant lesion Labs LABS Laboratory Tests Test 11/11/19 04:55 White Blood Count 9.2 x10^3/uL (4.0-11.0) Red Blood Count 4.26 x10^6/uL (4.30-5.70) Hemoglobin 13.6 g/dL (13.0-17.5) Hematocrit 38.5 % (39.0-53.0) Mean Corpuscular Volume 90 fL (79-100) Mean Corpuscular Hemoglobin 32 pg (25-35) Mean Corpuscular Hemoglobin Concent 36 g/dL (31-37) Red Cell Distribution Width 13.0 % (11.5-14.5) Platelet Count 503 x10^3/uL (140-400) Neutrophils (%) (Auto) 63 % (31-73) Lymphocytes (%) (Auto) 21 % (24-48) Monocytes (%) (Auto) 12 % (0-9) Eosinophils (%) (Auto) 3 % (0-3) Basophils (%) (Auto) 1 % (0-3) Neutrophils # (Auto) 5.8 x10^3/uL (1.8-7.7) Lymphocytes # (Auto) 2.0 x10^3/uL (1.0-4.8) Monocytes # (Auto) 1.1 x10^3/uL (0.0-1.1) Eosinophils # (Auto) 0.3 x10^3/uL (0.0-0.7) Basophils # (Auto) 0.1 x10^3/uL (0.0-0.2) Sodium Level 140 mmol/L (136-145) Potassium Level 3.7 mmol/L (3.5-5.1) Chloride Level 105 mmol/L (98-107) Carbon Dioxide Level 27 mmol/L (21-32) Anion Gap 8 (6-14) Blood Urea Nitrogen 12 mg/dL (8-26) Creatinine 0.9 mg/dL (0.7-1.3) Estimated GFR (Cockcroft-Gault) 93.5 Glucose Level 97 mg/dL (70-99) Calcium Level 8.4 mg/dL (8.5-10.1) Assessment and Plan Assessmemt and Plan Problems Medical Problems: (1) Dental abscess Status: Acute Comment Review of Relevant I have reviewed the following items shereen (where applicable) has been applied. Labs Laboratory Tests Test 11/10/19 05:25 11/11/19 04:55 White Blood Count 11.8 x10^3/uL (4.0-11.0) 9.2 x10^3/uL (4.0-11.0) Red Blood Count 4.50 x10^6/uL (4.30-5.70) 4.26 x10^6/uL (4.30-5.70) Hemoglobin 13.6 g/dL (13.0-17.5) 13.6 g/dL (13.0-17.5) Hematocrit 40.3 % (39.0-53.0) 38.5 % (39.0-53.0) Mean Corpuscular Volume 90 fL (79-100) 90 fL (79-100) Mean Corpuscular Hemoglobin 30 pg (25-35) 32 pg (25-35) Mean Corpuscular Hemoglobin Concent 34 g/dL (31-37) 36 g/dL (31-37) Red Cell Distribution Width 13.2 % (11.5-14.5) 13.0 % (11.5-14.5) Platelet Count 471 x10^3/uL (140-400) 503 x10^3/uL (140-400) Neutrophils (%) (Auto) 81 % (31-73) 63 % (31-73) Lymphocytes (%) (Auto) 11 % (24-48) 21 % (24-48) Monocytes (%) (Auto) 8 % (0-9) 12 % (0-9) Eosinophils (%) (Auto) 0 % (0-3) 3 % (0-3) Basophils (%) (Auto) 0 % (0-3) 1 % (0-3) Neutrophils # (Auto) 9.6 x10^3/uL (1.8-7.7) 5.8 x10^3/uL (1.8-7.7) Lymphocytes # (Auto) 1.2 x10^3/uL (1.0-4.8) 2.0 x10^3/uL (1.0-4.8) Monocytes # (Auto) 1.0 x10^3/uL (0.0-1.1) 1.1 x10^3/uL (0.0-1.1) Eosinophils # (Auto) 0.0 x10^3/uL (0.0-0.7) 0.3 x10^3/uL (0.0-0.7) Basophils # (Auto) 0.0 x10^3/uL (0.0-0.2) 0.1 x10^3/uL (0.0-0.2) Sodium Level 139 mmol/L (136-145) 140 mmol/L (136-145) Potassium Level 4.5 mmol/L (3.5-5.1) 3.7 mmol/L (3.5-5.1) Chloride Level 103 mmol/L (98-107) 105 mmol/L (98-107) Carbon Dioxide Level 25 mmol/L (21-32) 27 mmol/L (21-32) Anion Gap 11 (6-14) 8 (6-14) Blood Urea Nitrogen 14 mg/dL (8-26) 12 mg/dL (8-26) Creatinine 1.0 mg/dL (0.7-1.3) 0.9 mg/dL (0.7-1.3) Estimated GFR (Cockcroft-Gault) 82.8 93.5 Glucose Level 113 mg/dL (70-99) 97 mg/dL (70-99) Calcium Level 8.6 mg/dL (8.5-10.1) 8.4 mg/dL (8.5-10.1) Laboratory Tests Test 11/11/19 04:55 White Blood Count 9.2 x10^3/uL (4.0-11.0) Red Blood Count 4.26 x10^6/uL (4.30-5.70) Hemoglobin 13.6 g/dL (13.0-17.5) Hematocrit 38.5 % (39.0-53.0) Mean Corpuscular Volume 90 fL (79-100) Mean Corpuscular Hemoglobin 32 pg (25-35) Mean Corpuscular Hemoglobin Concent 36 g/dL (31-37) Red Cell Distribution Width 13.0 % (11.5-14.5) Platelet Count 503 x10^3/uL (140-400) Neutrophils (%) (Auto) 63 % (31-73) Lymphocytes (%) (Auto) 21 % (24-48) Monocytes (%) (Auto) 12 % (0-9) Eosinophils (%) (Auto) 3 % (0-3) Basophils (%) (Auto) 1 % (0-3) Neutrophils # (Auto) 5.8 x10^3/uL (1.8-7.7) Lymphocytes # (Auto) 2.0 x10^3/uL (1.0-4.8) Monocytes # (Auto) 1.1 x10^3/uL (0.0-1.1) Eosinophils # (Auto) 0.3 x10^3/uL (0.0-0.7) Basophils # (Auto) 0.1 x10^3/uL (0.0-0.2) Sodium Level 140 mmol/L (136-145) Potassium Level 3.7 mmol/L (3.5-5.1) Chloride Level 105 mmol/L (98-107) Carbon Dioxide Level 27 mmol/L (21-32) Anion Gap 8 (6-14) Blood Urea Nitrogen 12 mg/dL (8-26) Creatinine 0.9 mg/dL (0.7-1.3) Estimated GFR (Cockcroft-Gault) 93.5 Glucose Level 97 mg/dL (70-99) Calcium Level 8.4 mg/dL (8.5-10.1) Microbiology 11/09/19 Gram Stain - Final, Resulted 11/09/19 Aerobic and Anaerobic Culture - Preliminary, Resulted Medications Current Medications Clindamycin Phosphate 50 ml @ 100 mls/hr Q8HRS IV Last administered on 11/10/19at 06:02; Start 11/08/19 at 16:00; Stop 11/10/19 at 09:47; Status DC Sodium Chloride 1,000 ml @ 1,000 mls/hr 1X ONCE IV Last administered on 11/08/19at 10:10; Start 11/08/19 at 09:00; Stop 11/08/19 at 09:59; Status DC Clindamycin Phosphate 50 ml @ 100 mls/hr 1X ONCE IV Last administered on 11/08/19at 10:12; Start 11/08/19 at 09:30; Stop 11/08/19 at 09:59; Status DC Morphine Sulfate (Morphine Sulfate) 4 mg 1X ONCE IV Last administered on 11/08/19at 10:23; Start 11/08/19 at 10:15; Stop 11/08/19 at 10:16; Status DC Ondansetron HCl (Zofran) 4 mg PRN Q8HRS PRN IV NAUSEA/VOMITING Last administered on 11/08/19at 10:54; Start 11/08/19 at 10:30; Stop 11/09/19 at 10:29; Status DC Morphine Sulfate (Morphine Sulfate) 4 mg QIDPRN PRN IV PAIN Last administered on 11/08/19at 10:54; Start 11/08/19 at 10:30; Stop 11/09/19 at 10:29; Status DC Sodium Chloride 1,000 ml @ 100 mls/hr Q10H IV Last administered on 11/09/19at 06:00; Start 11/08/19 at 10:24; Stop 11/09/19 at 10:23; Status DC Iohexol (Omnipaque 300 Mg/ml) 75 ml 1X ONCE IV Last administered on 11/08/19at 10:51; Start 11/08/19 at 10:45; Stop 11/08/19 at 10:46; Status DC Info (CONTRAST GIVEN -- Rx MONITORING) 1 each PRN DAILY PRN MC SEE COMMENTS; Start 11/08/19 at 10:45; Stop 11/10/19 at 10:44; Status DC Enoxaparin Sodium (Lovenox 40mg Syringe) 40 mg Q24H SQ Last administered on 11/10/19at 18:03; Start 11/08/19 at 17:00 Ketorolac Tromethamine (Toradol 30mg Vial) 30 mg PRN Q6HRS PRN IVP MILD PAIN 1- 3 Last administered on 11/11/19at 05:48; Start 11/08/19 at 16:00; Stop 11/13/19 at 15:59 Lactobacillus Rhamnosus (Culturelle) 1 cap BID PO Last administered on 11/11/19at 10:15; Start 11/09/19 at 21:00 Fentanyl Citrate (Fentanyl 2ml Vial) 100 mcg STK-MED ONCE .ROUTE ; Start 11/09/19 at 15:08; Stop 11/09/19 at 15:08; Status DC Neostigmine Methylsulfate (Bloxiverz) 10 mg STK-MED ONCE .ROUTE ; Start 11/09/19 at 15:08; Stop 11/09/19 at 15:08; Status DC Rocuronium Har[place] (Zemuron) 50 mg STK-MED ONCE .ROUTE ; Start 11/09/19 at 15:08; Stop 11/09/19 at 15:09; Status DC Midazolam HCl (Versed) 2 mg STK-MED ONCE .ROUTE ; Start 11/09/19 at 15:09; Stop 11/09/19 at 15:09; Status DC Lidocaine HCl (Lidocaine Pf 2% Vial) 5 ml STK-MED ONCE .ROUTE ; Start 11/09/19 at 15:09; Stop 11/09/19 at 15:09; Status DC Propofol (Diprivan) 200 mg STK-MED ONCE IV ; Start 11/09/19 at 15:09; Stop 11/09/19 at 15:09; Status DC Dexamethasone Sodium Phosphate (Decadron) 4 mg STK-MED ONCE .ROUTE ; Start 11/09/19 at 15:09; Stop 11/09/19 at 15:09; Status DC Ondansetron HCl (Zofran) 4 mg STK-MED ONCE .ROUTE ; Start 11/09/19 at 15:09; Stop 11/09/19 at 15:09; Status DC Gelatin (Gelfoam Size 100) 1 each STK-MED ONCE .ROUTE ; Start 11/09/19 at 15:53; Stop 11/09/19 at 15:54; Status DC Bupivacaine HCl/ Epinephrine Bitart (Sensorcain-Epi 0.5%-1:463330 Mpf) 30 ml STK -MED ONCE .ROUTE Last administered on 11/09/19at 16:30; Start 11/09/19 at 15:53; Stop 11/09/19 at 15:54; Status DC Chlorhexidine Gluconate (Peridex) 15 ml STK-MED ONCE .ROUTE ; Start 11/09/19 at 15:53; Stop 11/09/19 at 15:54; Status DC Glycopyrrolate (Robinul) 1 mg STK-MED ONCE .ROUTE ; Start 11/09/19 at 16:31; Stop 11/09/19 at 16:32; Status DC Fentanyl Citrate (Fentanyl 2ml Vial) 100 mcg STK-MED ONCE .ROUTE ; Start 11/09/19 at 16:39; Stop 11/09/19 at 16:39; Status DC Fentanyl Citrate (Fentanyl 2ml Vial) 100 mcg STK-MED ONCE .ROUTE ; Start 11/09/19 at 16:48; Stop 11/09/19 at 16:48; Status DC Fentanyl Citrate (Fentanyl 2ml Vial) 100 mcg STK-MED ONCE .ROUTE ; Start 11/09/19 at 17:45; Stop 11/09/19 at 17:46; Status DC Bacitracin/ Polymyxin B Sulfate (Polysporin Ophth) 0.25 inch BID OU Last administered on 11/11/19at 10:14; Start 11/09/19 at 21:00 Ringer's Solution 1,000 ml @ 75 mls/hr [id number] IV Last administered on 11/10/19at 23:08; Start 11/09/19 at 17:45 Ampicillin Sodium/ Sulbactam Sodium 3 gm/Sodium Chloride 100 ml @ 200 mls/hr Q6HRS IV Last administered on 11/11/19at 05:37; Start 11/10/19 at 12:00 Oxycodone/ Acetaminophen (Percocet 5/325) 1 tab PRN Q4HRS PRN PO PAIN Last administered on 11/10/19at 23:15; Start 11/10/19 at 10:15 Morphine Sulfate (Morphine Sulfate) 4 mg PRN Q4HRS PRN IV MODERATE-SEVERE PAIN Last administered on 11/11/19at 10:14; Start 11/10/19 at 10:15 Lidocaine HCl (Buffered Lidocaine 1%) 3 ml STK-MED ONCE .ROUTE ; Start 11/10/19 at 14:58; Stop 11/10/19 at 14:59; Status DC Lidocaine HCl (Buffered Lidocaine 1%) 6 ml 1X ONCE INJ Last administered on 11/10/19at 15:22; Start 11/10/19 at 15:15; Stop 11/10/19 at 15:16; Status DC Active Scripts Active Reported No Known Medications Prior To Admisstion (Info) Each 1 Each UNKNOWN Vitals/I & O Vital Sign - Last 24 Hours 11/10/19 11/10/19 11/10/19 11/10/19 13:04 13:34 14:49 18:02 Temp 98.4 98.4 Pulse 72 Resp 18 B/P (MAP) 132/79 (96) Pulse Ox 98 O2 Delivery Room Air Room Air Room Air Room Air 11/10/19 11/10/19 11/10/19 11/10/19 18:32 19:00 20:00 23:05 Temp 99.0 98.6 99.0 98.6 Pulse 67 62 Resp 18 18 B/P (MAP) 133/85 (101) 112/73 (86) Pulse Ox 94 93 O2 Delivery Room Air Nasal Cannula Room Air Room Air 11/10/19 11/11/19 11/11/19 11/11/19 23:15 00:15 03:05 07:00 Temp 98.6 98.0 98.6 98.0 Pulse 60 80 Resp 20 20 18 18 B/P (MAP) 109/74 (86) 122/85 (97) Pulse Ox 93 93 95 94 O2 Delivery Room Air Room Air Room Air Room Air 11/11/19 11/11/19 11/11/19 08:46 10:14 10:44 Temp 98.0 98.0 Pulse 80 Resp 18 B/P (MAP) 122/85 (97) Pulse Ox 94 O2 Delivery Room Air Room Air Room Air Intake and Output 11/10/19 11/10/19 11/11/19 15:00 23:00 07:00 Intake Total 300 ml Output Total 0 ml 1800 ml Balance 0 ml 300 ml -1800 ml Justicifation of Admission Dx: Justifications for Admission: Justification of Admission Dx: Yes (Culture / IV ABX / Surgical debridement) Cellulitis: Cellulitis YUAN MONACO MD Nov 11, 2019 11:22
[2019-11-11] MEDS: oxyCODONE/APAP 5/325 1 TAB TABLET PO PRN (17:21)
[2019-11-11] MEDS: ENOXAPARIN 40 MG/0.4 ML SYRINGE. SQ SCH (17:21)
--- NOTE | 2019-11-11 19:38 | CONS ---
DATE OF CONSULTATION: 11/11/2019 ATTENDING PHYSICIAN: Dr. Hector. REASON FOR CONSULTATION: The patient was seen at the request of Dr. Dickerson for rehab evaluation about his right hip pain. HISTORY OF PRESENT ILLNESS: This is a 39-year-old male from [facility], admitted for evaluation and treatment of right lower facial pain and swelling going on for about 3 weeks. He was seen by Dr. Timi Contreras, oral surgeon, had tooth extraction done on 10/28/2019, has been on antibiotics without any improvement, CT scan of the neck with contrast. The patient underwent incision and drainage of right neck abscess, extraction of grossly mobile teeth numbers 28, 29, 30, and 31, debridement of the mandible and culture and specimen analysis of right neck and right mandible, debridement of right mandible, back to bleeding bone done by Dr. Timi Contreras on 11/09/2019 for treatment of right mandible and neck infection and grossly mobile teeth of his right mandible. The patient complains of right hip area pain, on and off as a teenager. He admits more pain with activity. He has been incarcerated for the last several years. The patient is not known allergic to any medication. He is a former smoker. The patient admits occasionally the pain radiates to his right lower extremity with associated weakness and numbness and he had some injections done in the past. After the injection, his right leg became numb and weak for a while. The patient denies any trouble with his bowel or bladder control. The patient denies any weakness or numbness in the extremities or any trouble with right leg pain at present time. PHYSICAL EXAMINATION: GENERAL: Today revealed young male patient in no acute distress. He is alert, oriented to time, place, person and circumstance and follows commands appropriately. MUSCULOSKELETAL: He has had pain free range of motion of both lower extremity joints. He has had tenderness to palpation over right sacroiliac joint area and straight leg raising test is negative bilaterally. NEUROLOGIC: He had 5/5 grade muscle strength in his lower extremities, equal perception of touch and pinprick sensation in both lower extremities and deep tendon reflexes are 2+ and symmetrical. He is independent with bed mobility. I have not tested his transfers or ambulation skills at this time. ASSESSMENT: Young male with chronic lower back pain from degenerative disk disease of lumbar vertebrae with occasional right lumbar radiculitis. No clinical evidence of right lumbar radiculopathy. RECOMMENDATIONS: I have suggested to him to take some anti-inflammatory medications if there are no contraindications and also reviewed with him a home program of physical modalities, relax, stretching exercise to his lower back and proper body mechanics. Right now, he does not need any injection to his lower back at least until he is off IV antibiotics. Dr. Dickerson, I appreciate asking me to participate in the care of this interesting patient. I will be glad to see him for a followup on an as-needed basis. RIAN HURLEY MD DR: SHAYNE/gissel JOB#: [id number] / [id number]
--- NOTE | 2019-11-11 19:43 | PDOC ---
GENERAL General: 11/11/2019 AAO X 3 NAEO patient recovering Normal post op appearance of wounds Normal exudate, non purulent. ID consulted, PICC line placed, IV Unasyn started Pain management with PO analgesics and IV morphine has been effective per patient VITAL SIGNS Vital Signs/I&O: Vital Signs Date Time Temp Pulse Resp B/P (MAP) Pulse Ox O2 Delivery O2 Flow Rate FiO2 11/11/19 17:21 Room Air 11/11/19 15:55 97.9 75 18 126/78 (94) 96 97.9 11/10/19 08:00 2.0 I & O 11/10/19 11/10/19 11/11/19 15:00 23:00 07:00 Intake Total 300 ml Output Total 0 ml 1800 ml Balance 0 ml 300 ml -1800 ml ALLERGIES Allergies: Allergies Coded Allergies Type Severity Reaction Last Updated Verified No Known Drug Allergies 11/08/19 No LAB Lab: Laboratory Tests Test 11/11/19 04:55 White Blood Count 9.2 x10^3/uL (4.0-11.0) Red Blood Count 4.26 x10^6/uL (4.30-5.70) L Hemoglobin 13.6 g/dL (13.0-17.5) Hematocrit 38.5 % (39.0-53.0) L Mean Corpuscular Volume 90 fL (79-100) Mean Corpuscular Hemoglobin 32 pg (25-35) Mean Corpuscular Hemoglobin Concent 36 g/dL (31-37) Red Cell Distribution Width 13.0 % (11.5-14.5) Platelet Count 503 x10^3/uL (140-400) H Neutrophils (%) (Auto) 63 % (31-73) Lymphocytes (%) (Auto) 21 % (24-48) L Monocytes (%) (Auto) 12 % (0-9) H Eosinophils (%) (Auto) 3 % (0-3) Basophils (%) (Auto) 1 % (0-3) Neutrophils # (Auto) 5.8 x10^3/uL (1.8-7.7) Lymphocytes # (Auto) 2.0 x10^3/uL (1.0-4.8) Monocytes # (Auto) 1.1 x10^3/uL (0.0-1.1) Eosinophils # (Auto) 0.3 x10^3/uL (0.0-0.7) Basophils # (Auto) 0.1 x10^3/uL (0.0-0.2) Sodium Level 140 mmol/L (136-145) Potassium Level 3.7 mmol/L (3.5-5.1) Chloride Level 105 mmol/L (98-107) Carbon Dioxide Level 27 mmol/L (21-32) Anion Gap 8 (6-14) Blood Urea Nitrogen 12 mg/dL (8-26) Creatinine 0.9 mg/dL (0.7-1.3) Estimated GFR (Cockcroft-Gault) 93.5 Glucose Level 97 mg/dL (70-99) Calcium Level 8.4 mg/dL (8.5-10.1) L Laboratory Tests 11/11/19 04:55 Laboratory Tests 11/11/19 04:55 ASSESSMENT & PLAN A&P 39 yom s/p extraction #32 with worsening infection and soft tissue and lower right mandible infection Possible lower right osteomyelitis HD 4 POD 2 Patient is stable, improving pain control plan to continue IV Morphine/ ketorolac / PO Percocet Appreciate ID consult and placement of PICC line and guidance with IV ABX Plan to irrigate drains BID Plan d/c drains Saturday 11/11 Cultures reported 11/11/19 Awaiting permanent pathology from lower right mandible to document osteomyelitis, or document other pathology (SCC or other) Once pathology has been finalized, plan to coordinate d/c back to facility Please contact me with any questions or concerns. If Facility can accommodate ABX, please reach out to me directly [phone] [place] to Transfer Friday. Due to difficulty of transfer, and concern for ABX continuity considering keeping over weekend continue Soft mechanical diet. Will continue to see daily. Appreciate translation assistance with Nurse Grace Justicifation of Admission Dx: Justifications for Admission: Justification of Admission Dx: Yes (Culture / IV ABX / Surgical debridement) Cellulitis: Cellulitis PEPE FOUNTAIN DMD Nov 11, 2019 19:43
[2019-11-12] VITALS (7 sets, daily range): BP systolic 110–135; BP diastolic 80–88
[2019-11-12] MEDS: AMPICILLIN/SULBACTAM 3 GM in IV NORMAL SALINE 100ML 100 ML IV SCH ×5 (00:32→23:45)
[2019-11-12 04:21] LABS: BASO # 0.1 x10^3/uL (0.0-0.2); BASO % 1 % (0-3); EOS # 0.4 x10^3/uL (0.0-0.7); EOS % 4 % (0-3); HEMATOCRIT 37.7 % (39.0-53.0); HEMOGLOBIN 13.1 g/dL (13.0-17.5); LYMPH # 2.3 x10^3/uL (1.0-4.8); LYMPH % 27 % (24-48); MEAN CORPUSCULAR HEMOGLOBIN 31 pg (25-35); MEAN CORPUSCULAR HGB CONC 35 g/dL (31-37); MEAN CORPUSCULAR VOLUME 90 fL (79-100); MONO % 12 % (0-9); NEUT # 4.7 x10^3/uL (1.8-7.7); NEUT % 56 % (31-73); PLATELET COUNT 535 x10^3/uL (140-400); RED BLOOD COUNT 4.21 x10^6/uL (4.30-5.70); RED CELL DISTRIBUTION WIDTH 13.1 % (11.5-14.5); WHITE BLOOD COUNT 8.4 x10^3/uL (4.0-11.0)
[2019-11-12 04:41] LABS: CALCIUM 8.6 mg/dL (8.5-10.1); CREATININE 1.1 mg/dL (0.7-1.3); GFR 74.1; POTASSIUM 3.7 mmol/L (3.5-5.1)
[2019-11-12] MEDS: oxyCODONE/APAP 5/325 1 TAB TABLET PO PRN ×4 (05:41→23:50)
[2019-11-12] MEDS: IV RINGERS,LACTATED 1000ML 1,000 ML IV SCH ×2 (09:17→23:45)
[2019-11-12] MEDS: LACTOBACILLUS RHAMNOSUS GG 1 CAPSULE. PO SCH ×2 (09:18→20:05)
[2019-11-12] MEDS: MORPHINE SULFATE 4 MG/ML VIAL. IV PRN (09:21)
[2019-11-12] MEDS: BACITRACIN/POLYMYXIN B OPHTH OINTMENT 3.5GM TUBE. OU SCH ×2 (09:28→21:00)
--- NOTE | 2019-11-12 09:29 | PDOC ---
PROGRESS NOTES Subjective Subjective He denies any significant back of hip pain. Objective Objective Vital Signs Date Time Temp Pulse Resp B/P (MAP) Pulse Ox O2 Delivery O2 Flow Rate FiO2 11/12/19 08:32 98.6 66 18 133/88 (103) 94 Room Air 98.6 11/10/19 08:00 2.0 Intake and Output 11/12/19 07:00 Intake Total 1500 ml Output Total 2200 ml Balance -700 ml Intake Oral 1500 ml Output Urine Total 2200 ml Physical Exam Physical Exam He is supine in bed and had dressing to right mandible area. Assessment Assessment Problems Medical Problems: (1) Dental abscess Status: Acute Plan Plan of Care I have remained him about taking care of his back by avoiding handling any weights and using proper body mechanics on a regular basis. I will be glad to consider injecting his right sacroiliac joint if his pain is interfering with his mobility. Comment Review of Relevant I have reviewed the following items shereen (where applicable) has been applied. Labs Laboratory Tests Test 11/11/19 04:55 11/12/19 03:45 White Blood Count 9.2 x10^3/uL (4.0-11.0) 8.4 x10^3/uL (4.0-11.0) Red Blood Count 4.26 x10^6/uL (4.30-5.70) 4.21 x10^6/uL (4.30-5.70) Hemoglobin 13.6 g/dL (13.0-17.5) 13.1 g/dL (13.0-17.5) Hematocrit 38.5 % (39.0-53.0) 37.7 % (39.0-53.0) Mean Corpuscular Volume 90 fL (79-100) 90 fL (79-100) Mean Corpuscular Hemoglobin 32 pg (25-35) 31 pg (25-35) Mean Corpuscular Hemoglobin Concent 36 g/dL (31-37) 35 g/dL (31-37) Red Cell Distribution Width 13.0 % (11.5-14.5) 13.1 % (11.5-14.5) Platelet Count 503 x10^3/uL (140-400) 535 x10^3/uL (140-400) Neutrophils (%) (Auto) 63 % (31-73) 56 % (31-73) Lymphocytes (%) (Auto) 21 % (24-48) 27 % (24-48) Monocytes (%) (Auto) 12 % (0-9) 12 % (0-9) Eosinophils (%) (Auto) 3 % (0-3) 4 % (0-3) Basophils (%) (Auto) 1 % (0-3) 1 % (0-3) Neutrophils # (Auto) 5.8 x10^3/uL (1.8-7.7) 4.7 x10^3/uL (1.8-7.7) Lymphocytes # (Auto) 2.0 x10^3/uL (1.0-4.8) 2.3 x10^3/uL (1.0-4.8) Monocytes # (Auto) 1.1 x10^3/uL (0.0-1.1) 1.0 x10^3/uL (0.0-1.1) Eosinophils # (Auto) 0.3 x10^3/uL (0.0-0.7) 0.4 x10^3/uL (0.0-0.7) Basophils # (Auto) 0.1 x10^3/uL (0.0-0.2) 0.1 x10^3/uL (0.0-0.2) Sodium Level 140 mmol/L (136-145) 139 mmol/L (136-145) Potassium Level 3.7 mmol/L (3.5-5.1) 3.7 mmol/L (3.5-5.1) Chloride Level 105 mmol/L (98-107) 104 mmol/L (98-107) Carbon Dioxide Level 27 mmol/L (21-32) 27 mmol/L (21-32) Anion Gap 8 (6-14) 8 (6-14) Blood Urea Nitrogen 12 mg/dL (8-26) 13 mg/dL (8-26) Creatinine 0.9 mg/dL (0.7-1.3) 1.1 mg/dL (0.7-1.3) Estimated GFR (Cockcroft-Gault) 93.5 74.1 Glucose Level 97 mg/dL (70-99) 97 mg/dL (70-99) Calcium Level 8.4 mg/dL (8.5-10.1) 8.6 mg/dL (8.5-10.1) Laboratory Tests Test 11/12/19 03:45 White Blood Count 8.4 x10^3/uL (4.0-11.0) Red Blood Count 4.21 x10^6/uL (4.30-5.70) Hemoglobin 13.1 g/dL (13.0-17.5) Hematocrit 37.7 % (39.0-53.0) Mean Corpuscular Volume 90 fL (79-100) Mean Corpuscular Hemoglobin 31 pg (25-35) Mean Corpuscular Hemoglobin Concent 35 g/dL (31-37) Red Cell Distribution Width 13.1 % (11.5-14.5) Platelet Count 535 x10^3/uL (140-400) Neutrophils (%) (Auto) 56 % (31-73) Lymphocytes (%) (Auto) 27 % (24-48) Monocytes (%) (Auto) 12 % (0-9) Eosinophils (%) (Auto) 4 % (0-3) Basophils (%) (Auto) 1 % (0-3) Neutrophils # (Auto) 4.7 x10^3/uL (1.8-7.7) Lymphocytes # (Auto) 2.3 x10^3/uL (1.0-4.8) Monocytes # (Auto) 1.0 x10^3/uL (0.0-1.1) Eosinophils # (Auto) 0.4 x10^3/uL (0.0-0.7) Basophils # (Auto) 0.1 x10^3/uL (0.0-0.2) Sodium Level 139 mmol/L (136-145) Potassium Level 3.7 mmol/L (3.5-5.1) Chloride Level 104 mmol/L (98-107) Carbon Dioxide Level 27 mmol/L (21-32) Anion Gap 8 (6-14) Blood Urea Nitrogen 13 mg/dL (8-26) Creatinine 1.1 mg/dL (0.7-1.3) Estimated GFR (Cockcroft-Gault) 74.1 Glucose Level 97 mg/dL (70-99) Calcium Level 8.6 mg/dL (8.5-10.1) Microbiology 11/09/19 Gram Stain - Final, Resulted 11/09/19 Aerobic and Anaerobic Culture - Preliminary, Resulted Medications Current Medications Clindamycin Phosphate 50 ml @ 100 mls/hr Q8HRS IV Last administered on 11/10/19at 06:02; Start 11/08/19 at 16:00; Stop 11/10/19 at 09:47; Status DC Sodium Chloride 1,000 ml @ 1,000 mls/hr 1X ONCE IV Last administered on 11/08/19at 10:10; Start 11/08/19 at 09:00; Stop 11/08/19 at 09:59; Status DC Clindamycin Phosphate 50 ml @ 100 mls/hr 1X ONCE IV Last administered on 11/08/19at 10:12; Start 11/08/19 at 09:30; Stop 11/08/19 at 09:59; Status DC Morphine Sulfate (Morphine Sulfate) 4 mg 1X ONCE IV Last administered on 11/08/19at 10:23; Start 11/08/19 at 10:15; Stop 11/08/19 at 10:16; Status DC Ondansetron HCl (Zofran) 4 mg PRN Q8HRS PRN IV NAUSEA/VOMITING Last administered on 11/08/19at 10:54; Start 11/08/19 at 10:30; Stop 11/09/19 at 10:29; Status DC Morphine Sulfate (Morphine Sulfate) 4 mg QIDPRN PRN IV PAIN Last administered on 11/08/19at 10:54; Start 11/08/19 at 10:30; Stop 11/09/19 at 10:29; Status DC Sodium Chloride 1,000 ml @ 100 mls/hr Q10H IV Last administered on 11/09/19at 06:00; Start 11/08/19 at 10:24; Stop 11/09/19 at 10:23; Status DC Iohexol (Omnipaque 300 Mg/ml) 75 ml 1X ONCE IV Last administered on 11/08/19at 10:51; Start 11/08/19 at 10:45; Stop 11/08/19 at 10:46; Status DC Info (CONTRAST GIVEN -- Rx MONITORING) 1 each PRN DAILY PRN MC SEE COMMENTS; Start 11/08/19 at 10:45; Stop 11/10/19 at 10:44; Status DC Enoxaparin Sodium (Lovenox 40mg Syringe) 40 mg Q24H SQ Last administered on 11/11/19at 17:21; Start 11/08/19 at 17:00 Ketorolac Tromethamine (Toradol 30mg Vial) 30 mg PRN Q6HRS PRN IVP MILD PAIN 1- 3 Last administered on 11/11/19at 17:20; Start 11/08/19 at 16:00; Stop 11/13/19 at 15:59 Lactobacillus Rhamnosus (Culturelle) 1 cap BID PO Last administered on 11/11/19at 21:17; Start 11/09/19 at 21:00 Fentanyl Citrate (Fentanyl 2ml Vial) 100 mcg STK-MED ONCE .ROUTE ; Start 11/09/19 at 15:08; Stop 11/09/19 at 15:08; Status DC Neostigmine Methylsulfate (Bloxiverz) 10 mg STK-MED ONCE .ROUTE ; Start 11/09/19 at 15:08; Stop 11/09/19 at 15:08; Status DC Rocuronium Magnet (Zemuron) 50 mg STK-MED ONCE .ROUTE ; Start 11/09/19 at 15:08; Stop 11/09/19 at 15:09; Status DC Midazolam HCl (Versed) 2 mg STK-MED ONCE .ROUTE ; Start 11/09/19 at 15:09; Stop 11/09/19 at 15:09; Status DC Lidocaine HCl (Lidocaine Pf 2% Vial) 5 ml STK-MED ONCE .ROUTE ; Start 11/09/19 at 15:09; Stop 11/09/19 at 15:09; Status DC Propofol (Diprivan) 200 mg STK-MED ONCE IV ; Start 11/09/19 at 15:09; Stop 11/09/19 at 15:09; Status DC Dexamethasone Sodium Phosphate (Decadron) 4 mg STK-MED ONCE .ROUTE ; Start 11/09/19 at 15:09; Stop 11/09/19 at 15:09; Status DC Ondansetron HCl (Zofran) 4 mg STK-MED ONCE .ROUTE ; Start 11/09/19 at 15:09; Stop 11/09/19 at 15:09; Status DC Gelatin (Gelfoam Size 100) 1 each STK-MED ONCE .ROUTE ; Start 11/09/19 at 15:53; Stop 11/09/19 at 15:54; Status DC Bupivacaine HCl/ Epinephrine Bitart (Sensorcain-Epi 0.5%-1:660952 Mpf) 30 ml STK-MED ONCE .ROUTE Last administered on 11/09/19at 16:30; Start 11/09/19 at 15:53; Stop 11/09/19 at 15:54; Status DC Chlorhexidine Gluconate (Peridex) 15 ml STK-MED ONCE .ROUTE ; Start 11/09/19 at 15:53; Stop 11/09/19 at 15:54; Status DC Glycopyrrolate (Robinul) 1 mg STK-MED ONCE .ROUTE ; Start 11/09/19 at 16:31; Stop 11/09/19 at 16:32; Status DC Fentanyl Citrate (Fentanyl 2ml Vial) 100 mcg STK-MED ONCE .ROUTE ; Start 11/09/19 at 16:39; Stop 11/09/19 at 16:39; Status DC Fentanyl Citrate (Fentanyl 2ml Vial) 100 mcg STK-MED ONCE .ROUTE ; Start 11/09/19 at 16:48; Stop 11/09/19 at 16:48; Status DC Fentanyl Citrate (Fentanyl 2ml Vial) 100 mcg STK-MED ONCE .ROUTE ; Start 11/09/19 at 17:45; Stop 11/09/19 at 17:46; Status DC Bacitracin/ Polymyxin B Sulfate (Polysporin Ophth) 0.25 inch BID OU Last administered on 11/11/19at 21:26; Start 11/09/19 at 21:00 Ringer's Solution 1,000 ml @ 75 mls/hr [id number] IV Last administered on 11/11/19at 21:23; Start 11/09/19 at 17:45 Ampicillin Sodium/ Sulbactam Sodium 3 gm/Sodium Chloride 100 ml @ 200 mls/hr Q6HRS IV Last administered on 11/12/19at 05:32; Start 11/10/19 at 12:00 Oxycodone/ Acetaminophen (Percocet 5/325) 1 tab PRN Q4HRS PRN PO PAIN Last administered on 11/12/19at 05:41; Start 11/10/19 at 10:15 Morphine Sulfate (Morphine Sulfate) 4 mg PRN Q4HRS PRN IV MODERATE-SEVERE PAIN Last administered on 11/11/19at 21:18; Start 11/10/19 at 10:15 Lidocaine HCl (Buffered Lidocaine 1%) 3 ml STK-MED ONCE .ROUTE ; Start 11/10/19 at 14:58; Stop 11/10/19 at 14:59; Status DC Lidocaine HCl (Buffered Lidocaine 1%) 6 ml 1X ONCE INJ Last administered on 11/10/19at 15:22; Start 11/10/19 at 15:15; Stop 11/10/19 at 15:16; Status DC Active Scripts Active Reported No Known Medications Prior To Admisstion (Info) Each 1 Each MC UNKNOWN Vitals/I & O Vital Sign - Last 24 Hours 11/11/19 11/11/19 11/11/19 11/11/19 10:14 10:44 11:00 15:55 Temp 98.1 97.9 98.1 97.9 Pulse 77 75 Resp 18 18 B/P (MAP) 136/95 (109) 126/78 (94) Pulse Ox 93 96 O2 Delivery Room Air Room Air Room Air Room Air 11/11/19 11/11/19 11/11/19 11/11/19 17:21 18:21 19:44 20:00 Temp 97.5 97.5 Pulse 75 Resp 16 B/P (MAP) 128/84 (99) Pulse Ox 93 O2 Delivery Room Air Room Air Room Air Room Air 11/11/19 11/11/19 11/11/19 11/12/19 21:18 21:48 23:32 03:56 Temp 98.3 98.6 98.3 98.6 Pulse 65 61 Resp 20 20 16 16 B/P (MAP) 120/81 (94) 122/80 (94) Pulse Ox 93 94 97 94 O2 Delivery Room Air Room Air Room Air Room Air 11/12/19 11/12/19 11/12/19 11/12/19 05:41 07:00 07:36 08:32 Temp 98.6 98.6 98.6 98.6 Pulse 66 66 Resp 20 18 18 B/P (MAP) 133/88 (103) 133/88 (103) Pulse Ox 94 94 94 O2 Delivery Room Air Room Air Room Air Room Air Intake and Output 11/11/19 11/11/19 11/12/19 15:00 23:00 07:00 Intake Total 1000 ml 500 ml Output Total 1300 ml 900 ml Balance 1000 ml -1300 ml -400 ml Justicifation of Admission Dx: Justifications for Admission: Justification of Admission Dx: Yes (Culture / IV ABX / Surgical debridement) Cellulitis: Cellulitis RIAN HURLEY MD Nov 12, 2019 09:29
--- NOTE | 2019-11-12 10:36 | PDOC ---
PROGRESS NOTES Chief Complaint Chief Complaint Swelling and pain of lower right mandible, persistent following extraction of #32 Numbness of lower right lip (CN V Div III) History of Present Illness History of Present Illness 11/11, plan to DC in AM with abx, IV for one month he is getting better 11/10, had questions after my visit yesterday about if his epididys is normal and about a small melanosis discoloration on his glans penis. exam was normal. today, had questions about leg pain after falling from a tree as a child, and this pain inhibits him from doing burpee exercises in long term. I had to explain to him that burpees are almost excessive exercise at his age, and if he is able to complete, no medical workup is currently neccessary. 11/09, still pain, swelling, bleeding, drainage from jaw will try PO pain meds, po intake as able 2 guards in room 11/09/19 Pt seen and examined with guards in the room Chart reviewed Discussed with RN Vitals Vitals Vital Signs Date Time Temp Pulse Resp B/P (MAP) Pulse Ox O2 Delivery O2 Flow Rate FiO2 11/12/19 10:28 Room Air 11/12/19 08:32 98.6 66 18 133/88 (103) 94 98.6 Physical Exam Physical Exam CONSTITUTIONAL: He is alert. He is sitting upright in bed. He is in no acute distress. He is on some nasal cannula oxygen. HEENT: Oral cavity, oropharynx is without signs of thrush. Incisions along the right lower gumline appears to be intact. His jaw has less swelling associated with the Penroses in place. No gross erythema. NECK: Supple. No JVD. LUNGS: Clear to auscultation bilaterally. HEART: S1, S2. ABDOMEN: Soft, nontender. Positive bowel sounds. : glans with brown macular freckle - no swelling/NT/no drainge/warmth EXTREMITIES: No clubbing, cyanosis, or gross edema. SKIN: Warm to touch without generalized signs of rash. NEUROLOGIC: Nonfocal, answers questions, moves all extremities. PSYCHIATRIC: Affect is somewhat flat. RUE PICC clean General: Alert, Oriented X3, No acute distress Heart: Regular rate, Normal S1 Lungs: Clear Abdomen: Soft, No tenderness Extremities: No clubbing, No cyanosis, No edema Skin: No rashes, No significant lesion Labs LABS Laboratory Tests Test 11/12/19 03:45 White Blood Count 8.4 x10^3/uL (4.0-11.0) Red Blood Count 4.21 x10^6/uL (4.30-5.70) Hemoglobin 13.1 g/dL (13.0-17.5) Hematocrit 37.7 % (39.0-53.0) Mean Corpuscular Volume 90 fL (79-100) Mean Corpuscular Hemoglobin 31 pg (25-35) Mean Corpuscular Hemoglobin Concent 35 g/dL (31-37) Red Cell Distribution Width 13.1 % (11.5-14.5) Platelet Count 535 x10^3/uL (140-400) Neutrophils (%) (Auto) 56 % (31-73) Lymphocytes (%) (Auto) 27 % (24-48) Monocytes (%) (Auto) 12 % (0-9) Eosinophils (%) (Auto) 4 % (0-3) Basophils (%) (Auto) 1 % (0-3) Neutrophils # (Auto) 4.7 x10^3/uL (1.8-7.7) Lymphocytes # (Auto) 2.3 x10^3/uL (1.0-4.8) Monocytes # (Auto) 1.0 x10^3/uL (0.0-1.1) Eosinophils # (Auto) 0.4 x10^3/uL (0.0-0.7) Basophils # (Auto) 0.1 x10^3/uL (0.0-0.2) Sodium Level 139 mmol/L (136-145) Potassium Level 3.7 mmol/L (3.5-5.1) Chloride Level 104 mmol/L (98-107) Carbon Dioxide Level 27 mmol/L (21-32) Anion Gap 8 (6-14) Blood Urea Nitrogen 13 mg/dL (8-26) Creatinine 1.1 mg/dL (0.7-1.3) Estimated GFR (Cockcroft-Gault) 74.1 Glucose Level 97 mg/dL (70-99) Calcium Level 8.6 mg/dL (8.5-10.1) Assessment and Plan Assessmemt and Plan Problems Medical Problems: (1) Dental abscess Status: Acute Comment Review of Relevant I have reviewed the following items shereen (where applicable) has been applied. Labs Laboratory Tests Test 11/11/19 04:55 11/12/19 03:45 White Blood Count 9.2 x10^3/uL (4.0-11.0) 8.4 x10^3/uL (4.0-11.0) Red Blood Count 4.26 x10^6/uL (4.30-5.70) 4.21 x10^6/uL (4.30-5.70) Hemoglobin 13.6 g/dL (13.0-17.5) 13.1 g/dL (13.0-17.5) Hematocrit 38.5 % (39.0-53.0) 37.7 % (39.0-53.0) Mean Corpuscular Volume 90 fL (79-100) 90 fL (79-100) Mean Corpuscular Hemoglobin 32 pg (25-35) 31 pg (25-35) Mean Corpuscular Hemoglobin Concent 36 g/dL (31-37) 35 g/dL (31-37) Red Cell Distribution Width 13.0 % (11.5-14.5) 13.1 % (11.5-14.5) Platelet Count 503 x10^3/uL (140-400) 535 x10^3/uL (140-400) Neutrophils (%) (Auto) 63 % (31-73) 56 % (31-73) Lymphocytes (%) (Auto) 21 % (24-48) 27 % (24-48) Monocytes (%) (Auto) 12 % (0-9) 12 % (0-9) Eosinophils (%) (Auto) 3 % (0-3) 4 % (0-3) Basophils (%) (Auto) 1 % (0-3) 1 % (0-3) Neutrophils # (Auto) 5.8 x10^3/uL (1.8-7.7) 4.7 x10^3/uL (1.8-7.7) Lymphocytes # (Auto) 2.0 x10^3/uL (1.0-4.8) 2.3 x10^3/uL (1.0-4.8) Monocytes # (Auto) 1.1 x10^3/uL (0.0-1.1) 1.0 x10^3/uL (0.0-1.1) Eosinophils # (Auto) 0.3 x10^3/uL (0.0-0.7) 0.4 x10^3/uL (0.0-0.7) Basophils # (Auto) 0.1 x10^3/uL (0.0-0.2) 0.1 x10^3/uL (0.0-0.2) Sodium Level 140 mmol/L (136-145) 139 mmol/L (136-145) Potassium Level 3.7 mmol/L (3.5-5.1) 3.7 mmol/L (3.5-5.1) Chloride Level 105 mmol/L (98-107) 104 mmol/L (98-107) Carbon Dioxide Level 27 mmol/L (21-32) 27 mmol/L (21-32) Anion Gap 8 (6-14) 8 (6-14) Blood Urea Nitrogen 12 mg/dL (8-26) 13 mg/dL (8-26) Creatinine 0.9 mg/dL (0.7-1.3) 1.1 mg/dL (0.7-1.3) Estimated GFR (Cockcroft-Gault) 93.5 74.1 Glucose Level 97 mg/dL (70-99) 97 mg/dL (70-99) Calcium Level 8.4 mg/dL (8.5-10.1) 8.6 mg/dL (8.5-10.1) Laboratory Tests Test 11/12/19 03:45 White Blood Count 8.4 x10^3/uL (4.0-11.0) Red Blood Count 4.21 x10^6/uL (4.30-5.70) Hemoglobin 13.1 g/dL (13.0-17.5) Hematocrit 37.7 % (39.0-53.0) Mean Corpuscular Volume 90 fL (79-100) Mean Corpuscular Hemoglobin 31 pg (25-35) Mean Corpuscular Hemoglobin Concent 35 g/dL (31-37) Red Cell Distribution Width 13.1 % (11.5-14.5) Platelet Count 535 x10^3/uL (140-400) Neutrophils (%) (Auto) 56 % (31-73) Lymphocytes (%) (Auto) 27 % (24-48) Monocytes (%) (Auto) 12 % (0-9) Eosinophils (%) (Auto) 4 % (0-3) Basophils (%) (Auto) 1 % (0-3) Neutrophils # (Auto) 4.7 x10^3/uL (1.8-7.7) Lymphocytes # (Auto) 2.3 x10^3/uL (1.0-4.8) Monocytes # (Auto) 1.0 x10^3/uL (0.0-1.1) Eosinophils # (Auto) 0.4 x10^3/uL (0.0-0.7) Basophils # (Auto) 0.1 x10^3/uL (0.0-0.2) Sodium Level 139 mmol/L (136-145) Potassium Level 3.7 mmol/L (3.5-5.1) Chloride Level 104 mmol/L (98-107) Carbon Dioxide Level 27 mmol/L (21-32) Anion Gap 8 (6-14) Blood Urea Nitrogen 13 mg/dL (8-26) Creatinine 1.1 mg/dL (0.7-1.3) Estimated GFR (Cockcroft-Gault) 74.1 Glucose Level 97 mg/dL (70-99) Calcium Level 8.6 mg/dL (8.5-10.1) Microbiology 11/09/19 Gram Stain - Final, Resulted 11/09/19 Aerobic and Anaerobic Culture - Preliminary, Resulted Medications Current Medications Clindamycin Phosphate 50 ml @ 100 mls/hr Q8HRS IV Last administered on 11/10/19at 06:02; Start 11/08/19 at 16:00; Stop 11/10/19 at 09:47; Status DC Sodium Chloride 1,000 ml @ 1,000 mls/hr 1X ONCE IV Last administered on 11/08/19at 10:10; Start 11/08/19 at 09:00; Stop 11/08/19 at 09:59; Status DC Clindamycin Phosphate 50 ml @ 100 mls/hr 1X ONCE IV Last administered on 11/08/19at 10:12; Start 11/08/19 at 09:30; Stop 11/08/19 at 09:59; Status DC Morphine Sulfate (Morphine Sulfate) 4 mg 1X ONCE IV Last administered on 11/08/19at 10:23; Start 11/08/19 at 10:15; Stop 11/08/19 at 10:16; Status DC Ondansetron HCl (Zofran) 4 mg PRN Q8HRS PRN IV NAUSEA/VOMITING Last admini stered on 11/08/19at 10:54; Start 11/08/19 at 10:30; Stop 11/09/19 at 10:29; Status DC Morphine Sulfate (Morphine Sulfate) 4 mg QIDPRN PRN IV PAIN Last administered on 11/08/19at 10:54; Start 11/08/19 at 10:30; Stop 11/09/19 at 10:29; Status DC Sodium Chloride 1,000 ml @ 100 mls/hr Q10H IV Last administered on 11/09/19at 06:00; Start 11/08/19 at 10:24; Stop 11/09/19 at 10:23; Status DC Iohexol (Omnipaque 300 Mg/ml) 75 ml 1X ONCE IV Last administered on 11/08/19at 10:51; Start 11/08/19 at 10:45; Stop 11/08/19 at 10:46; Status DC Info (CONTRAST GIVEN -- Rx MONITORING) 1 each PRN DAILY PRN MC SEE COMMENTS; Start 11/08/19 at 10:45; Stop 11/10/19 at 10:44; Status DC Enoxaparin Sodium (Lovenox 40mg Syringe) 40 mg Q24H SQ Last administered on 11/11/19at 17:21; Start 11/08/19 at 17:00 Ketorolac Tromethamine (Toradol 30mg Vial) 30 mg PRN Q6HRS PRN IVP MILD PAIN 1- 3 Last administered on 11/11/19at 17:20; Start 11/08/19 at 16:00; Stop 11/13/19 at 15:59 Lactobacillus Rhamnosus (Culturelle) 1 cap BID PO Last administered on 11/12/19at 09:18; Start 11/09/19 at 21:00 Fentanyl Citrate (Fentanyl 2ml Vial) 100 mcg STK-MED ONCE .ROUTE ; Start 10/13 12/01 at 15:08; Stop 11/09/19 at 15:08; Status DC Neostigmine Methylsulfate (Bloxiverz) 10 mg STK-MED ONCE .ROUTE ; Start 11/09/19 at 15:08; Stop 11/09/19 at 15:08; Status DC Rocuronium [place] (Zemuron) 50 mg STK-MED ONCE .ROUTE ; Start 11/09/19 at 15:08 ; Stop 11/09/19 at 15:09; Status DC Midazolam HCl (Versed) 2 mg STK-MED ONCE .ROUTE ; Start 11/09/19 at 15:09; Stop 11/09/19 at 15:09; Status DC Lidocaine HCl (Lidocaine Pf 2% Vial) 5 ml STK-MED ONCE .ROUTE ; Start 11/09/19 at 15:09; Stop 11/09/19 at 15:09; Status DC Propofol (Diprivan) 200 mg STK-MED ONCE IV ; Start 11/09/19 at 15:09; Stop 11/09/19 at 15:09; Status DC Dexamethasone Sodium Phosphate (Decadron) 4 mg STK-MED ONCE .ROUTE ; Start 11/09/19 at 15:09; Stop 11/09/19 at 15:09; Status DC Ondansetron HCl (Zofran) 4 mg STK-MED ONCE .ROUTE ; Start 11/09/19 at 15:09; Stop 11/09/19 at 15:09; Status DC Gelatin (Gelfoam Size 100) 1 each STK-MED ONCE .ROUTE ; Start 11/09/19 at 15:53; Stop 11/09/19 at 15:54; Status DC Bupivacaine HCl/ Epinephrine Bitart (Sensorcain-Epi 0.5%-1:675732 Mpf) 30 ml STK-MED ONCE .ROUTE Last administered on 11/09/19at 16:30; Start 11/09/19 at 15:53; Stop 11/09/19 at 15:54; Status DC Chlorhexidine Gluconate (Peridex) 15 ml STK-MED ONCE .ROUTE ; Start 11/09/19 at 15:53; Stop 11/09/19 at 15:54; Status DC Glycopyrrolate (Robinul) 1 mg STK-MED ONCE .ROUTE ; Start 11/09/19 at 16:31; Stop 11/09/19 at 16:32; Status DC Fentanyl Citrate (Fentanyl 2ml Vial) 100 mcg STK-MED ONCE .ROUTE ; Start 11/09/19 at 16:39; Stop 11/09/19 at 16:39; Status DC Fentanyl Citrate (Fentanyl 2ml Vial) 100 mcg STK-MED ONCE .ROUTE ; Start 11/09/19 at 16:48; Stop 11/09/19 at 16:48; Status DC Fentanyl Citrate (Fentanyl 2ml Vial) 100 mcg STK-MED ONCE .ROUTE ; Start 11/09/19 at 17:45; Stop 11/09/19 at 17:46; Status DC Bacitracin/ Polymyxin B Sulfate (Polysporin Ophth) 0.25 inch BID OU Last administered on 11/12/19at 09:28; Start 11/09/19 at 21:00 Ringer's Solution 1,000 ml @ 75 mls/hr [id number] IV Last administered on 11/12/19at 09:17; Start 11/09/19 at 17:45 Ampicillin Sodium/ Sulbactam Sodium 3 gm/Sodium Chloride 100 ml @ 200 mls/hr Q6HRS IV Last administered on 11/12/19at 05:32; Start 11/10/19 at 12:00 Oxycodone/ Acetaminophen (Percocet 5/325) 1 tab PRN Q4HRS PRN PO PAIN Last administered on 11/12/19at 05:41; Start 11/10/19 at 10:15 Morphine Sulfate (Morphine Sulfate) 4 mg PRN Q4HRS PRN IV MODERATE-SEVERE PAIN Last administered on 11/12/19at 09:21; Start 11/10/19 at 10:15 Lidocaine HCl (Buffered Lidocaine 1%) 3 ml STK-MED ONCE .ROUTE ; Start 11/10/19 at 14:58; Stop 11/10/19 at 14:59; Status DC Lidocaine HCl (Buffered Lidocaine 1%) 6 ml 1X ONCE INJ Last administered on 11/10/19at 15:22; Start 11/10/19 at 15:15; Stop 11/10/19 at 15:16; Status DC Active Scripts Active Reported No Known Medications Prior To Admisstion (Info) Each 1 Each MC UNKNOWN Vitals/I & O Vital Sign - Last 24 Hours 11/11/19 11/11/19 11/11/19 11/11/19 10:44 11:00 15:55 17:21 Temp 98.1 97.9 98.1 97.9 Pulse 77 75 Resp 18 18 B/P (MAP) 136/95 (109) 126/78 (94) Pulse Ox 93 96 O2 Delivery Room Air Room Air Room Air Room Air 11/11/19 11/11/19 11/11/19 11/11/19 18:21 19:44 20:00 21:18 Temp 97.5 97.5 Pulse 75 Resp 16 20 B/P (MAP) 128/84 (99) Pulse Ox 93 93 O2 Delivery Room Air Room Air Room Air Room Air 11/11/19 11/11/19 11/12/19 11/12/19 21:48 23:32 03:56 05:41 Temp 98.3 98.6 98.3 98.6 Pulse 65 61 Resp 20 16 16 20 B/P (MAP) 120/81 (94) 122/80 (94) Pulse Ox 94 97 94 94 O2 Delivery Room Air Room Air Room Air Room Air 11/12/19 11/12/19 11/12/19 11/12/19 07:00 07:30 07:36 08:32 Temp 98.6 98.6 98.6 98.6 Pulse 66 66 Resp 18 18 B/P (MAP) 133/88 (103) 133/88 (103) Pulse Ox 94 94 O2 Delivery Room Air Room Air Room Air Room Air 11/12/19 11/12/19 09:21 10:28 O2 Delivery Room Air Room Air Intake and Output 11/11/19 11/11/19 11/12/19 15:00 23:00 07:00 Intake Total 1000 ml 500 ml Output Total 1300 ml 900 ml Balance 1000 ml -1300 ml -400 ml Justicifation of Admission Dx: Justifications for Admission: Justification of Admission Dx: Yes (Culture / IV ABX / Surgical debridement) Cellulitis: Cellulitis YUAN MONACO MD Nov 12, 2019 10:36
--- NOTE | 2019-11-12 11:26 | PDOC ---
Infectious Disease Note Subjective Subjective Doing ok. Eating better No F/C/S/N/V/D Vital Sign Vital Signs Vital Signs Date Time Temp Pulse Resp B/P (MAP) Pulse Ox O2 Delivery O2 Flow Rate FiO2 11/12/19 10:28 Room Air 11/12/19 08:32 98.6 66 18 133/88 (103) 94 98.6 Physical Exam PHYSICAL EXAM CONSTITUTIONAL: He is alert. He is sitting upright in bed. He is in no acute distress. He is eating HEENT: Oral cavity, oropharynx is without signs of thrush. Incisions along the right lower gumline appears to be intact. His jaw has less swelling associated with the Penroses in place. No gross erythema. NECK: Supple. No JVD. LUNGS: Clear to auscultation bilaterally. HEART: S1, S2. ABDOMEN: Soft, nontender. Positive bowel sounds. : glans with brown macular freckle - no swelling/NT/no drainge/warmth EXTREMITIES: No clubbing, cyanosis, or gross edema. SKIN: Warm to touch without generalized signs of rash. NEUROLOGIC: Nonfocal, answers questions, moves all extremities. PSYCHIATRIC: Affect is somewhat flat. [facility] clean Labs Lab Laboratory Tests Test 11/12/19 03:45 White Blood Count 8.4 x10^3/uL (4.0-11.0) Red Blood Count 4.21 x10^6/uL (4.30-5.70) Hemoglobin 13.1 g/dL (13.0-17.5) Hematocrit 37.7 % (39.0-53.0) Mean Corpuscular Volume 90 fL (79-100) Mean Corpuscular Hemoglobin 31 pg (25-35) Mean Corpuscular Hemoglobin Concent 35 g/dL (31-37) Red Cell Distribution Width 13.1 % (11.5-14.5) Platelet Count 535 x10^3/uL (140-400) Neutrophils (%) (Auto) 56 % (31-73) Lymphocytes (%) (Auto) 27 % (24-48) Monocytes (%) (Auto) 12 % (0-9) Eosinophils (%) (Auto) 4 % (0-3) Basophils (%) (Auto) 1 % (0-3) Neutrophils # (Auto) 4.7 x10^3/uL (1.8-7.7) Lymphocytes # (Auto) 2.3 x10^3/uL (1.0-4.8) Monocytes # (Auto) 1.0 x10^3/uL (0.0-1.1) Eosinophils # (Auto) 0.4 x10^3/uL (0.0-0.7) Basophils # (Auto) 0.1 x10^3/uL (0.0-0.2) Sodium Level 139 mmol/L (136-145) Potassium Level 3.7 mmol/L (3.5-5.1) Chloride Level 104 mmol/L (98-107) Carbon Dioxide Level 27 mmol/L (21-32) Anion Gap 8 (6-14) Blood Urea Nitrogen 13 mg/dL (8-26) Creatinine 1.1 mg/dL (0.7-1.3) Estimated GFR (Cockcroft-Gault) 74.1 Glucose Level 97 mg/dL (70-99) Calcium Level 8.6 mg/dL (8.5-10.1) Micro ANAEROBIC-AEROBIC CULTURE Preliminary Preliminary RARE GRAM NEGATIVE RODS on 11/11/19 at 1259 FINAL ID= [HAEMOPHILUS PARAINFLUENZAE] RAR GRAM POSITIVE COCCI on 11/11/19 at 1301 FINAL ID= [ROTHIA MUCILAGINOSA] ROTHIA MUCILAGINOSA HAEMOPHILUS PARAINFLUENZAE Microbiology 11/09/19 Gram Stain - Final, Resulted 11/09/19 Aerobic and Anaerobic Culture, Resulted Pending Objective Assessment Leukocytosis s/p Solumedrol 11/08 and post - op -better Dental abscess - cults neg so far R facial cellulitis osteomyelitis of the right mandible- based on op report 11/08 Plan Plan of Care D/c on IV Unasyn Rx in chart IV abx for 4 weeks min F/u ID office 2 weeks D/w BRITTNEY Mtz MD Nov 12, 2019 11:26
[2019-11-12] MEDS: ENOXAPARIN 40 MG/0.4 ML SYRINGE. SQ SCH (16:55)
--- NOTE | 2019-11-12 17:07 | PATHOLOGY ---
[facility] Accession Number: [id number] . 01 Material submitted: . mandible - RIGHT MANDIBLE BONE BIOPSY. Modifiers: right . 01 Clinical history: . Right infected neck R/O osteomyelitis . 02 Diagnosis: Segments of bone, right mandible biopsy: - Acute osteomyelitis. (JPM:elis; 11/12/2019) QMS 11/12/2019 1232 Local . 02 Comment: There is no evidence of malignancy. (JPM:elis; 11/12/2019) . 02 Electronically signed: . Mynor Carreon MD, Pathologist NPI- [id number] . 01 Gross description: . The specimen is received in formalin, labeled "Antoni Feliciano, right mandible biopsy" and consists of 2 segments of brown bone measuring 0.9 x 0.6 x 0.5 cm and 0.9 x 0.5 x 0.5 cm which are entirely submitted in A1 following decalcification. (SDY; 11/11/2019) SYU/SYU 11/11/2019 1034 Local . 02 Pathologist provided ICD-10: M86.18 . 02 CPT . 577455, [id number] Specimen Comment: A courtesy copy of this report has been sent to [phone] Specimen Comment: [id number] Specimen Comment: Report sent to / DR NOGUERA Performed at: 01 [facility] [address], [place] [id number] MD Marin Marte MD Phone: [phone] Performed at: 02 [facility] [address], [place] [id number] MD Mynor Carreon MD Phone: [phone]
--- NOTE | 2019-11-12 19:05 | PDOC ---
GENERAL General: 39 yom s/p right mandibular infection s/p I&D HD 5 POD 3 AAO X 3 NAEO patient recovering Normal post op appearance of wounds Normal exudate, non purulent. ID consulted, PICC line placed, IV Unasyn started Pain management with PO analgesics and IV morphine has been effective per patient VITAL SIGNS Vital Signs/I&O: Vital Signs Date Time Temp Pulse Resp B/P (MAP) Pulse Ox O2 Delivery O2 Flow Rate FiO2 11/12/19 15:00 98.9 78 18 129/86 (100) 93 Room Air 98.9 I & O 11/11/19 11/11/19 11/12/19 15:00 23:00 07:00 Intake Total 1000 ml 500 ml Output Total 1300 ml 900 ml Balance 1000 ml -1300 ml -400 ml ALLERGIES Allergies: Allergies Coded Allergies Type Severity Reaction Last Updated Verified No Known Drug Allergies 11/08/19 No LAB Lab: Laboratory Tests Test 11/12/19 03:45 White Blood Count 8.4 x10^3/uL (4.0-11.0) Red Blood Count 4.21 x10^6/uL (4.30-5.70) L Hemoglobin 13.1 g/dL (13.0-17.5) Hematocrit 37.7 % (39.0-53.0) L Mean Corpuscular Volume 90 fL (79-100) Mean Corpuscular Hemoglobin 31 pg (25-35) Mean Corpuscular Hemoglobin Concent 35 g/dL (31-37) Red Cell Distribution Width 13.1 % (11.5-14.5) Platelet Count 535 x10^3/uL (140-400) H Neutrophils (%) (Auto) 56 % (31-73) Lymphocytes (%) (Auto) 27 % (24-48) Monocytes (%) (Auto) 12 % (0-9) H Eosinophils (%) (Auto) 4 % (0-3) H Basophils (%) (Auto) 1 % (0-3) Neutrophils # (Auto) 4.7 x10^3/uL (1.8-7.7) Lymphocytes # (Auto) 2.3 x10^3/uL (1.0-4.8) Monocytes # (Auto) 1.0 x10^3/uL (0.0-1.1) Eosinophils # (Auto) 0.4 x10^3/uL (0.0-0.7) Basophils # (Auto) 0.1 x10^3/uL (0.0-0.2) Sodium Level 139 mmol/L (136-145) Potassium Level 3.7 mmol/L (3.5-5.1) Chloride Level 104 mmol/L (98-107) Carbon Dioxide Level 27 mmol/L (21-32) Anion Gap 8 (6-14) Blood Urea Nitrogen 13 mg/dL (8-26) Creatinine 1.1 mg/dL (0.7-1.3) Estimated GFR (Cockcroft-Gault) 74.1 Glucose Level 97 mg/dL (70-99) Calcium Level 8.6 mg/dL (8.5-10.1) Laboratory Tests 11/12/19 03:45 Laboratory Tests 11/12/19 03:45 ASSESSMENT & PLAN A&P 39 yom s/p extraction #32 with worsening infection and soft tissue and lower right mandible infection Possible lower right osteomyelitis HD 5 POD 3 Patient is stable, improving pain control plan to continue IV Morphine/ ketorolac / PO Percocet Appreciate ID consult and placement of PICC line and guidance with IV ABX Drains d/c'd Saturday 11/11 Cultures reported 11/11/19 Awaiting permanent pathology from lower right mandible to document osteomyelitis, or document other pathology (SCC or other) Once pathology has been finalized, plan to coordinate d/c back to facility Please contact me with any questions or concerns. If Facility can accommodate ABX, please reach out to me directly [phone] continue Soft mechanical diet. Will continue to see daily. Justicifation of Admission Dx: Justifications for Admission: Justification of Admission Dx: Yes (Culture / IV ABX / Surgical debridement) Cellulitis: Cellulitis PEPE FOUNTAIN DMD Nov 12, 2019 19:05
[2019-11-12] MEDS: KETOROLAC 30 MG/ML VIAL. IVP PRN (22:10)
[2019-11-13 03:00] VITALS: BP 114/80
[2019-11-13 04:25] LABS: BASO % 0 % (0-3); EOS # 0.3 x10^3/uL (0.0-0.7); EOS % 4 % (0-3); HEMATOCRIT 38.6 % (39.0-53.0); HEMOGLOBIN 13.6 g/dL (13.0-17.5); LYMPH # 2.4 x10^3/uL (1.0-4.8); LYMPH % 30 % (24-48); MEAN CORPUSCULAR HEMOGLOBIN 31 pg (25-35); MEAN CORPUSCULAR HGB CONC 35 g/dL (31-37); MEAN CORPUSCULAR VOLUME 89 fL (79-100); MONO # 0.8 x10^3/uL (0.0-1.1); MONO % 9 % (0-9); NEUT # 4.7 x10^3/uL (1.8-7.7); NEUT % 57 % (31-73); PLATELET COUNT 488 x10^3/uL (140-400); RED BLOOD COUNT 4.34 x10^6/uL (4.30-5.70); RED CELL DISTRIBUTION WIDTH 12.8 % (11.5-14.5); WHITE BLOOD COUNT 8.3 x10^3/uL (4.0-11.0)
[2019-11-13] MEDS: MORPHINE SULFATE 4 MG/ML VIAL. IV PRN (04:25)
[2019-11-13 04:37] LABS: CALCIUM 8.4 mg/dL (8.5-10.1); CREATININE 1.1 mg/dL (0.7-1.3); GFR 74.1; POTASSIUM 4.3 mmol/L (3.5-5.1)
[2019-11-13] MEDS: AMPICILLIN/SULBACTAM 3 GM in IV NORMAL SALINE 100ML 100 ML IV SCH ×4 (05:30→23:59)
[2019-11-13 07:00] VITALS: BP 105/73
[2019-11-13] MEDS: BACITRACIN/POLYMYXIN B OPHTH OINTMENT 3.5GM TUBE. OU SCH ×2 (08:24→20:49)
[2019-11-13] MEDS: LACTOBACILLUS RHAMNOSUS GG 1 CAPSULE. PO SCH ×2 (08:35→20:49)
[2019-11-13 11:00] VITALS: BP 122/85
[2019-11-13] MEDS: oxyCODONE/APAP 5/325 1 TAB TABLET PO PRN ×3 (12:05→22:48)
[2019-11-13] MEDS: KETOROLAC 30 MG/ML VIAL. IVP PRN (13:46)
[2019-11-13] MEDS: IV RINGERS,LACTATED 1000ML 1,000 ML IV SCH (13:46)
--- NOTE | 2019-11-13 14:23 | PDOC ---
PROGRESS NOTES Chief Complaint Chief Complaint Swelling and pain of lower right mandible, persistent following extraction of #32 dental abcess sepsis osteonecrosis jaw Numbness of lower right lip (CN V Div III) History of Present Illness History of Present Illness 11/12, PAth OK, cont the IV abx, one more day, o 11/11, plan to DC in AM with abx, IV for one month he is getting better 11/10, had questions after my visit yesterday about if his epididys is normal and about a small melanosis discoloration on his glans penis. exam was normal. today, had questions about leg pain after falling from a tree as a child, and this pain inhibits him from doing burpee exercises in fpc. I had to explain to him that burpees are almost excessive exercise at his age, and if he is able to complete, no medical workup is currently neccessary. 11/09, still pain, swelling, bleeding, drainage from jaw will try PO pain meds, po intake as able 2 guards in room 11/09/19 Pt seen and examined with guards in the room Chart reviewed Discussed with RN Vitals Vitals Vital Signs Date Time Temp Pulse Resp B/P (MAP) Pulse Ox O2 Delivery O2 Flow Rate FiO2 11/13/19 13:46 Room Air 11/13/19 11:00 98.8 82 18 122/85 (97) 93 98.8 Physical Exam Physical Exam CONSTITUTIONAL: He is alert. He is sitting upright in bed. He is in no acute distress. He is eating HEENT: Oral cavity, oropharynx is without signs of thrush. Incisions along the right lower gumline appears to be intact. His jaw has less swelling associated with the Penroses in place. No gross erythema. NECK: Supple. No JVD. LUNGS: Clear to auscultation bilaterally. HEART: S1, S2. ABDOMEN: Soft, nontender. Positive bowel sounds. : glans with brown macular freckle - no swelling/NT/no drainge/warmth EXTREMITIES: No clubbing, cyanosis, or gross edema. SKIN: Warm to touch without generalized signs of rash. NEUROLOGIC: Nonfocal, answers questions, moves all extremities. PSYCHIATRIC: Affect is somewhat flat. RUE PICC clean General: Alert, Oriented X3, No acute distress Heart: Regular rate, Normal S1 Lungs: Clear Abdomen: Soft, No tenderness Extremities: No clubbing, No cyanosis, No edema Skin: No rashes, No significant lesion Labs LABS Laboratory Tests Test 11/13/19 04:00 White Blood Count 8.3 x10^3/uL (4.0-11.0) Red Blood Count 4.34 x10^6/uL (4.30-5.70) Hemoglobin 13.6 g/dL (13.0-17.5) Hematocrit 38.6 % (39.0-53.0) Mean Corpuscular Volume 89 fL (79-100) Mean Corpuscular Hemoglobin 31 pg (25-35) Mean Corpuscular Hemoglobin Concent 35 g/dL (31-37) Red Cell Distribution Width 12.8 % (11.5-14.5) Platelet Count 488 x10^3/uL (140-400) Neutrophils (%) (Auto) 57 % (31-73) Lymphocytes (%) (Auto) 30 % (24-48) Monocytes (%) (Auto) 9 % (0-9) Eosinophils (%) (Auto) 4 % (0-3) Basophils (%) (Auto) 0 % (0-3) Neutrophils # (Auto) 4.7 x10^3/uL (1.8-7.7) Lymphocytes # (Auto) 2.4 x10^3/uL (1.0-4.8) Monocytes # (Auto) 0.8 x10^3/uL (0.0-1.1) Eosinophils # (Auto) 0.3 x10^3/uL (0.0-0.7) Basophils # (Auto) 0.0 x10^3/uL (0.0-0.2) Sodium Level 137 mmol/L (136-145) Potassium Level 4.3 mmol/L (3.5-5.1) Chloride Level 104 mmol/L (98-107) Carbon Dioxide Level 28 mmol/L (21-32) Anion Gap 5 (6-14) Blood Urea Nitrogen 13 mg/dL (8-26) Creatinine 1.1 mg/dL (0.7-1.3) Estimated GFR (Cockcroft-Gault) 74.1 Glucose Level 100 mg/dL (70-99) Calcium Level 8.4 mg/dL (8.5-10.1) Assessment and Plan Assessmemt and Plan Problems Medical Problems: (1) Dental abscess Status: Acute Comment Review of Relevant I have reviewed the following items shereen (where applicable) has been applied. Labs Laboratory Tests Test 11/12/19 03:45 11/13/19 04:00 White Blood Count 8.4 x10^3/uL (4.0-11.0) 8.3 x10^3/uL (4.0-11.0) Red Blood Count 4.21 x10^6/uL (4.30-5.70) 4.34 x10^6/uL (4.30-5.70) Hemoglobin 13.1 g/dL (13.0-17.5) 13.6 g/dL (13.0-17.5) Hematocrit 37.7 % (39.0-53.0) 38.6 % (39.0-53.0) Mean Corpuscular Volume 90 fL (79-100) 89 fL (79-100) Mean Corpuscular Hemoglobin 31 pg (25-35) 31 pg (25-35) Mean Corpuscular Hemoglobin Concent 35 g/dL (31-37) 35 g/dL (31-37) Red Cell Distribution Width 13.1 % (11.5-14.5) 12.8 % (11.5-14.5) Platelet Count 535 x10^3/uL (140-400) 488 x10^3/uL (140-400) Neutrophils (%) (Auto) 56 % (31-73) 57 % (31-73) Lymphocytes (%) (Auto) 27 % (24-48) 30 % (24-48) Monocytes (%) (Auto) 12 % (0-9) 9 % (0-9) Eosinophils (%) (Auto) 4 % (0-3) 4 % (0-3) Basophils (%) (Auto) 1 % (0-3) 0 % (0-3) Neutrophils # (Auto) 4.7 x10^3/uL (1.8-7.7) 4.7 x10^3/uL (1.8-7.7) Lymphocytes # (Auto) 2.3 x10^3/uL (1.0-4.8) 2.4 x10^3/uL (1.0-4.8) Monocytes # (Auto) 1.0 x10^3/uL (0.0-1.1) 0.8 x10^3/uL (0.0-1.1) Eosinophils # (Auto) 0.4 x10^3/uL (0.0-0.7) 0.3 x10^3/uL (0.0-0.7) Basophils # (Auto) 0.1 x10^3/uL (0.0-0.2) 0.0 x10^3/uL (0.0-0.2) Sodium Level 139 mmol/L (136-145) 137 mmol/L (136-145) Potassium Level 3.7 mmol/L (3.5-5.1) 4.3 mmol/L (3.5-5.1) Chloride Level 104 mmol/L (98-107) 104 mmol/L (98-107) Carbon Dioxide Level 27 mmol/L (21-32) 28 mmol/L (21-32) Anion Gap 8 (6-14) 5 (6-14) Blood Urea Nitrogen 13 mg/dL (8-26) 13 mg/dL (8-26) Creatinine 1.1 mg/dL (0.7-1.3) 1.1 mg/dL (0.7-1.3) Estimated GFR (Cockcroft-Gault) 74.1 74.1 Glucose Level 97 mg/dL (70-99) 100 mg/dL (70-99) Calcium Level 8.6 mg/dL (8.5-10.1) 8.4 mg/dL (8.5-10.1) Laboratory Tests Test 11/13/19 04:00 White Blood Count 8.3 x10^3/uL (4.0-11.0) Red Blood Count 4.34 x10^6/uL (4.30-5.70) Hemoglobin 13.6 g/dL (13.0-17.5) Hematocrit 38.6 % (39.0-53.0) Mean Corpuscular Volume 89 fL (79-100) Mean Corpuscular Hemoglobin 31 pg (25-35) Mean Corpuscular Hemoglobin Concent 35 g/dL (31-37) Red Cell Distribution Width 12.8 % (11.5-14.5) Platelet Count 488 x10^3/uL (140-400) Neutrophils (%) (Auto) 57 % (31-73) Lymphocytes (%) (Auto) 30 % (24-48) Monocytes (%) (Auto) 9 % (0-9) Eosinophils (%) (Auto) 4 % (0-3) Basophils (%) (Auto) 0 % (0-3) Neutrophils # (Auto) 4.7 x10^3/uL (1.8-7.7) Lymphocytes # (Auto) 2.4 x10^3/uL (1.0-4.8) Monocytes # (Auto) 0.8 x10^3/uL (0.0-1.1) Eosinophils # (Auto) 0.3 x10^3/uL (0.0-0.7) Basophils # (Auto) 0.0 x10^3/uL (0.0-0.2) Sodium Level 137 mmol/L (136-145) Potassium Level 4.3 mmol/L (3.5-5.1) Chloride Level 104 mmol/L (98-107) Carbon Dioxide Level 28 mmol/L (21-32) Anion Gap 5 (6-14) Blood Urea Nitrogen 13 mg/dL (8-26) Creatinine 1.1 mg/dL (0.7-1.3) Estimated GFR (Cockcroft-Gault) 74.1 Glucose Level 100 mg/dL (70-99) Calcium Level 8.4 mg/dL (8.5-10.1) Microbiology 11/09/19 Gram Stain - Final, Resulted 11/09/19 Aerobic and Anaerobic Culture - Preliminary, Resulted Medications Current Medications Clindamycin Phosphate 50 ml @ 100 mls/hr Q8HRS IV Last administered on 11/10/19at 06:02; Start 11/08/19 at 16:00; Stop 11/10/19 at 09:47; Status DC Sodium Chloride 1,000 ml @ 1,000 mls/hr 1X ONCE IV Last administered on 11/08/19at 10:10; Start 11/08/19 at 09:00; Stop 11/08/19 at 09:59; Status DC Clindamycin Phosphate 50 ml @ 100 mls/hr 1X ONCE IV Last administered on 11/08/19at 10:12; Start 11/08/19 at 09:30; Stop 11/08/19 at 09:59; Status DC Morphine Sulfate (Morphine Sulfate) 4 mg 1X ONCE IV Last administered on 11/08/19at 10:23; Start 11/08/19 at 10:15; Stop 11/08/19 at 10:16; Status DC Ondansetron HCl (Zofran) 4 mg PRN Q8HRS PRN IV NAUSEA/VOMITING Last administered on 11/08/19at 10:54; Start 11/08/19 at 10:30; Stop 11/09/19 at 10:29; Status DC Morphine Sulfate (Morphine Sulfate) 4 mg QIDPRN PRN IV PAIN Last administered on 11/08/19at 10:54; Start 11/08/19 at 10:30; Stop 11/09/19 at 10:29; Status DC Sodium Chloride 1,000 ml @ 100 mls/hr Q10H IV Last administered on 11/09/19at 06:00; Start 11/08/19 at 10:24; Stop 11/09/19 at 10:23; Status DC Iohexol (Omnipaque 300 Mg/ml) 75 ml 1X ONCE IV Last administered on 11/08/19at 10:51; Start 11/08/19 at 10:45; Stop 11/08/19 at 10:46; Status DC Info (CONTRAST GIVEN -- Rx MONITORING) 1 each PRN DAILY PRN MC SEE COMMENTS; Start 11/08/19 at 10:45; Stop 11/10/19 at 10:44; Status DC Enoxaparin Sodium (Lovenox 40mg Syringe) 40 mg Q24H SQ Last administered on 11/12/19at 16:55; Start 11/08/19 at 17:00 Ketorolac Tromethamine (Toradol 30mg Vial) 30 mg PRN Q6HRS PRN IVP MILD PAIN 1- 3 Last administered on 11/13/19at 13:46; Start 11/08/19 at 16:00; Stop 11/13/19 at 15:59 Lactobacillus Rhamnosus (Culturelle) 1 cap BID PO Last administered on 11/13/19at 08:35; Start 11/09/19 at 21:00 Fentanyl Citrate (Fentanyl 2ml Vial) 100 mcg STK-MED ONCE .ROUTE ; Start 11/09/19 at 15:08; Stop 11/09/19 at 15:08; Status DC Neostigmine Methylsulfate (Bloxiverz) 10 mg STK-MED ONCE .ROUTE ; Start 11/09/19 at 15:08; Stop 11/09/19 at 15:08; Status DC Rocuronium [place] (Zemuron) 50 mg STK-MED ONCE .ROUTE ; Start 11/09/19 at 15:08; Stop 11/09/19 at 15:09; Status DC Midazolam HCl (Versed) 2 mg STK-MED ONCE .ROUTE ; Start 11/09/19 at 15:09; Stop 11/09/19 at 15:09; Status DC Lidocaine HCl (Lidocaine Pf 2% Vial) 5 ml STK-MED ONCE .ROUTE ; Start 11/09/19 at 15:09; Stop 11/09/19 at 15:09; Status DC Propofol (Diprivan) 200 mg STK-MED ONCE IV ; Start 11/09/19 at 15:09; Stop 11/09/19 at 15:09; Status DC Dexamethasone Sodium Phosphate (Decadron) 4 mg STK-MED ONCE .ROUTE ; Start 11/09/19 at 15:09; Stop 11/09/19 at 15:09; Status DC Ondansetron HCl (Zofran) 4 mg STK-MED ONCE .ROUTE ; Start 11/09/19 at 15:09; Stop 11/09/19 at 15:09; Status DC Gelatin (Gelfoam Size 100) 1 each STK-MED ONCE .ROUTE ; Start 11/09/19 at 15:53; Stop 11/09/19 at 15:54; Status DC Bupivacaine HCl/ Epinephrine Bitart (Sensorcain-Epi 0.5%-1:[id number] Mpf) 30 ml STK-MED ONCE .ROUTE Last administered on 11/09/19at 16:30; Start 11/09/19 at 15:53; Stop 11/09/19 at 15:54; Status DC Chlorhexidine Gluconate (Peridex) 15 ml STK-MED ONCE .ROUTE ; Start 11/09/19 at 15:53; Stop 11/09/19 at 15:54; Status DC Glycopyrrolate (Robinul) 1 mg STK-MED ONCE .ROUTE ; Start 11/09/19 at 16:31; Stop 11/09/19 at 16:32; Status DC Fentanyl Citrate (Fentanyl 2ml Vial) 100 mcg STK-MED ONCE .ROUTE ; Start 11/09/19 at 16:39; Stop 11/09/19 at 16:39; Status DC Fentanyl Citrate (Fentanyl 2ml Vial) 100 mcg STK-MED ONCE .ROUTE ; Start 11/09/19 at 16:48; Stop 11/09/19 at 16:48; Status DC Fentanyl Citrate (Fentanyl 2ml Vial) 100 mcg STK-MED ONCE .ROUTE ; Start 11/09/19 at 17:45; Stop 11/09/19 at 17:46; Status DC Bacitracin/ Polymyxin B Sulfate (Polysporin Ophth) 0.25 inch BID OU Last administered on 11/12/19at 09:28; Start 11/09/19 at 21:00 Ringer's Solution 1,000 ml @ 75 mls/hr [id number] IV Last administered on 11/13/19at 13:46; Start 11/09/19 at 17:45 Ampicillin Sodium/ Sulbactam Sodium 3 gm/Sodium Chloride 100 ml @ 200 mls/hr Q6HRS IV Last administered on 11/13/19at 12:02; Start 11/10/19 at 12:00 Oxycodone/ Acetaminophen (Percocet 5/325) 1 tab PRN Q4HRS PRN PO PAIN Last administered on 11/13/19at 12:05; Start 11/10/19 at 10:15 Morphine Sulfate (Morphine Sulfate) 4 mg PRN Q4HRS PRN IV MODERATE-SEVERE PAIN Last administered on 11/13/19at 04:25; Start 11/10/19 at 10:15 Lidocaine HCl (Buffered Lidocaine 1%) 3 ml STK-MED ONCE .ROUTE ; Start 11/10/19 at 14:58; Stop 11/10/19 at 14:59; Status DC Lidocaine HCl (Buffered Lidocaine 1%) 6 ml 1X ONCE INJ Last administered on 11/10/19at 15:22; Start 11/10/19 at 15:15; Stop 11/10/19 at 15:16; Status DC Active Scripts Active Reported No Known Medications Prior To Admisstion (Info) Each 1 Each MC UNKNOWN Vitals/I & O Vital Sign - Last 24 Hours 11/12/19 11/12/19 11/12/19 11/12/19 15:00 19:00 20:06 21:10 Temp 98.9 98.7 98.9 98.7 Pulse 78 78 Resp 18 18 20 B/P (MAP) 129/86 (100) 134/88 (103) Pulse Ox 93 93 O2 Delivery Room Air Room Air Room Air Room Air 11/12/19 11/12/19 11/13/19 11/13/19 23:00 23:50 00:50 03:00 Temp 98.2 97.6 98.2 97.6 Pulse 65 67 Resp 18 20 20 18 B/P (MAP) 110/81 (91) 114/80 (91) Pulse Ox 95 95 O2 Delivery Room Air Room Air Room Air Room Air 11/13/19 11/13/19 11/13/19 11/13/19 04:25 05:00 07:00 07:15 Temp 98.0 98.0 Pulse 56 Resp 16 22 18 B/P (MAP) 105/73 (84) Pulse Ox 92 O2 Delivery Room Air Room Air Room Air 11/13/19 11/13/19 11/13/19 11:00 12:05 13:46 Temp 98.8 98.8 Pulse 82 Resp 18 B/P (MAP) 122/85 (97) Pulse Ox 93 O2 Delivery Room Air Room Air Room Air Intake and Output 11/12/19 11/12/19 11/13/19 15:00 23:00 07:00 Intake Total 900 ml 1200 ml Output Total 700 ml 650 ml Balance 200 ml 550 ml Justicifation of Admission Dx: Justifications for Admission: Justification of Admission Dx: Yes (Culture / IV ABX / Surgical debridement) Cellulitis: Cellulitis YUAN MONACO MD Nov 13, 2019 14:23
[2019-11-13 15:00] VITALS: BP 115/78
[2019-11-13] MEDS: ENOXAPARIN 40 MG/0.4 ML SYRINGE. SQ SCH (17:26)
[2019-11-13 19:00] VITALS: BP 122/84
[2019-11-13 23:00] VITALS: BP 125/85
[2019-11-14] MEDS: oxyCODONE/APAP 5/325 1 TAB TABLET PO PRN ×3 (02:23→11:32)
[2019-11-14 03:00] VITALS: BP 119/77
[2019-11-14] MEDS: IV RINGERS,LACTATED 1000ML 1,000 ML IV SCH ×2 (04:25→08:27)
[2019-11-14] MEDS: AMPICILLIN/SULBACTAM 3 GM in IV NORMAL SALINE 100ML 100 ML IV SCH ×2 (05:43→11:32)
[2019-11-14 06:16] LABS: CALCIUM 8.8 mg/dL (8.5-10.1); CREATININE 1.1 mg/dL (0.7-1.3); GFR 74.1; POTASSIUM 3.9 mmol/L (3.5-5.1)
[2019-11-14 06:56] LABS: BASO # 0.1 x10^3/uL (0.0-0.2); BASO % 1 % (0-3); EOS # 0.4 x10^3/uL (0.0-0.7); EOS % 4 % (0-3); HEMATOCRIT 39.7 % (39.0-53.0); HEMOGLOBIN 13.9 g/dL (13.0-17.5); LYMPH # 2.2 x10^3/uL (1.0-4.8); LYMPH % 25 % (24-48); MEAN CORPUSCULAR HEMOGLOBIN 31 pg (25-35); MEAN CORPUSCULAR HGB CONC 35 g/dL (31-37); MEAN CORPUSCULAR VOLUME 89 fL (79-100); MONO # 0.8 x10^3/uL (0.0-1.1); MONO % 10 % (0-9); NEUT # 5.1 x10^3/uL (1.8-7.7); NEUT % 60 % (31-73); PLATELET COUNT 549 x10^3/uL (140-400); RED BLOOD COUNT 4.47 x10^6/uL (4.30-5.70); RED CELL DISTRIBUTION WIDTH 12.8 % (11.5-14.5); WHITE BLOOD COUNT 8.5 x10^3/uL (4.0-11.0)
[2019-11-14 07:00] VITALS: BP 113/78
[2019-11-14] MEDS: LACTOBACILLUS RHAMNOSUS GG 1 CAPSULE. PO SCH (08:26)
[2019-11-14] MEDS: BACITRACIN/POLYMYXIN B OPHTH OINTMENT 3.5GM TUBE. OU SCH (08:27)
[2019-11-14] MEDS ORDERED: AMPI3VIA IJ (10:25)
[2019-11-14] MEDS ORDERED: OXYC1TAB15 PO (10:25)
[2019-11-14] MEDS ORDERED: DOCU-109 PO (10:27)
--- NOTE | 2019-11-14 10:27 | SNU/HH DC ---
DISCHARGE ORDERS DISCHARGE INFORMATION: DISCHARGE DATE: Nov 14, 2019 FINAL DIAGNOSIS osteomyelitis jaw dental abcess sepsis Problems Medical Problems: (1) Dental abscess Status: Acute CONDITION ON DISCHARGE: Stable CODE STATUS: Code Status: Full PRISON: SNF STAY <30 DAYS: No POST DISCHARGE ORDERS: ACTIVITY ORDERS: Resume previous activity WEIGHT BEARING STATUS: No restrictions DIET AFTER DISCHARGE: Regular FOLLOW-UP: PHYSICIAN FOLLOW-UP: ID 4 weeks, ADDITIONAL FOLLOW-UP: Dr. Contreras, 2 weeks, LAB ORDERS FOR FOLLOW-UP: chem 12, cbc, 7 days TREATMENT/EQUIPMENT ORDERS: ADAPTIVE EQUIPMENT NEEDED: None DISCHARGE MEDICATIONS: Home Meds Active Scripts Ibuprofen (IBUPROFEN) 600 Mg Tablet, 600 MG PO PRN Q6HRS PRN for INFLAMMATION, #30 TAB Prov:YUAN MONACO MD 11/14/19 Docusate Sodium (COLACE) 100 Mg Capsule, 100 MG PO DAILY for prevent constipation, #30 EA Prov:YUAN MONACO MD 11/14/19 Ampicillin Sodium/Sulbactam Na (UNASYN 3 GM VIAL) 3 Gm Vial, 3 GM IJ Q6HRS for jaw infection for 28 Days, #112 EACH Prov:YUAN MONACO MD 11/14/19 Oxycodone/Apap 5-325 (PERCOCET 5-325 MG TABLET ) 1 Each Tablet, 1 TAB PO PRN Q4HRS PRN for PAIN, #25 TAB Prov:YUAN MONACO MD 11/14/19 Reported Medications Info (NO KNOWN MEDICATIONS PRIOR TO ADMISSTION) Each, 1 EACH MC unknown for unknown, EACH 11/08/19 YUAN MONACO MD Nov 14, 2019 10:27
--- NOTE | 2019-11-14 10:28 | PDOC ---
GENERAL General: 11/14/2019 39 yom s/p right mandibular infection s/p I&D HD 7 POD 5 AAO X 3 NAEO patient recovering Normal post op appearance of wounds Significant improvement today, wounds are more supple, less induration today. hot frame tender, Appears to have a low likelyhood of re-loculation at exam today Normal exudate, non purulent. ID consulted, PICC line placed, IV ABX per ID Pain management with PO analgesics VITAL SIGNS Vital Signs/I&O: Vital Signs Date Time Temp Pulse Resp B/P (MAP) Pulse Ox O2 Delivery O2 Flow Rate FiO2 11/14/19 08:48 Room Air 11/14/19 07:00 98.7 70 18 113/78 (90) 95 98.7 11/14/19 03:23 2.0 I & O 11/13/19 11/13/19 11/14/19 15:00 23:00 07:00 Intake Total 220 ml 400 ml 250 ml Output Total 800 ml 1400 ml 1400 ml Balance -580 ml -1000 ml -1150 ml ALLERGIES Allergies: Allergies Coded Allergies Type Severity Reaction Last Updated Verified No Known Drug Allergies 11/08/19 No LAB Lab: Laboratory Tests Test 11/14/19 05:57 White Blood Count 8.5 x10^3/uL (4.0-11.0) Red Blood Count 4.47 x10^6/uL (4.30-5.70) Hemoglobin 13.9 g/dL (13.0-17.5) Hematocrit 39.7 % (39.0-53.0) Mean Corpuscular Volume 89 fL (79-100) Mean Corpuscular Hemoglobin 31 pg (25-35) Mean Corpuscular Hemoglobin Concent 35 g/dL (31-37) Red Cell Distribution Width 12.8 % (11.5-14.5) Platelet Count 549 x10^3/uL (140-400) H Neutrophils (%) (Auto) 60 % (31-73) Lymphocytes (%) (Auto) 25 % (24-48) Monocytes (%) (Auto) 10 % (0-9) H Eosinophils (%) (Auto) 4 % (0-3) H Basophils (%) (Auto) 1 % (0-3) Neutrophils # (Auto) 5.1 x10^3/uL (1.8-7.7) Lymphocytes # (Auto) 2.2 x10^3/uL (1.0-4.8) Monocytes # (Auto) 0.8 x10^3/uL (0.0-1.1) Eosinophils # (Auto) 0.4 x10^3/uL (0.0-0.7) Basophils # (Auto) 0.1 x10^3/uL (0.0-0.2) Sodium Level 137 mmol/L (136-145) Potassium Level 3.9 mmol/L (3.5-5.1) Chloride Level 103 mmol/L (98-107) Carbon Dioxide Level 30 mmol/L (21-32) Anion Gap 4 (6-14) L Blood Urea Nitrogen 12 mg/dL (8-26) Creatinine 1.1 mg/dL (0.7-1.3) Estimated GFR (Cockcroft-Gault) 74.1 Glucose Level 95 mg/dL (70-99) Calcium Level 8.8 mg/dL (8.5-10.1) Laboratory Tests 11/14/19 05:57 Laboratory Tests 11/14/19 05:57 ASSESSMENT & PLAN A&P 39 yom s/p extraction #32 with infection and soft tissue and lower right mandible infection Lower right acute osteomyelitis HD 5 POD 3 Patient is stable, improving pain control Plan to discharge back to facility today OK to follow up with me in my clinic in 1 week if needed. OK for [facility] to follow patient if transferring patient is an issue Appreciate ID consult and placement of PICC line and guidance with IV ABX Drains d/c'd Saturday 11/11 Cultures reported 11/11/19 Acute osteo reported 11/13/19 continue Soft mechanical diet. Justicifation of Admission Dx: Justifications for Admission: Justification of Admission Dx: Yes (Culture / IV ABX / Surgical debridement) Cellulitis: Cellulitis CARD,PEPE Reyes DMD Nov 14, 2019 10:28
[2019-11-14] MEDS ORDERED: IBUP-1007 PO (10:32)
[2019-11-14 11:00] VITALS: BP 130/87
--- NOTE | 2019-11-14 12:42 | PDOC3 ---
Discharge Summary Visit Information Date of Admission: Nov 08, 2019 Date of Discharge: Nov 14, 2019 Final Diagnosis Swelling and pain of lower right mandible, persistent following extraction of #32 dental abcess sepsis osteonecrosis jaw Numbness of lower right lip (CN V Div III) obese, BMI 32 [facility], Max Problems Medical Problems: (1) Dental abscess Status: Acute Brief Hospital Course Allergies Allergies Coded Allergies Type Severity Reaction Last Updated Verified No Known Drug Allergies 11/08/19 No Vital Signs Vital Signs Date Time Temp Pulse Resp B/P (MAP) Pulse Ox O2 Delivery O2 Flow Rate FiO2 11/14/19 11:32 Room Air 11/14/19 11:00 98.6 79 18 130/87 (101) 95 98.6 11/14/19 03:23 2.0 Lab Results Laboratory Tests Test 11/13/19 04:00 11/14/19 05:57 White Blood Count 8.3 x10^3/uL (4.0-11.0) 8.5 x10^3/uL (4.0-11.0) Red Blood Count 4.34 x10^6/uL (4.30-5.70) 4.47 x10^6/uL (4.30-5.70) Hemoglobin 13.6 g/dL (13.0-17.5) 13.9 g/dL (13.0-17.5) Hematocrit 38.6 % (39.0-53.0) 39.7 % (39.0-53.0) Mean Corpuscular Volume 89 fL (79-100) 89 fL (79-100) Mean Corpuscular Hemoglobin 31 pg (25-35) 31 pg (25-35) Mean Corpuscular Hemoglobin Concent 35 g/dL (31-37) 35 g/dL (31-37) Red Cell Distribution Width 12.8 % (11.5-14.5) 12.8 % (11.5-14.5) Platelet Count 488 x10^3/uL (140-400) 549 x10^3/uL (140-400) Neutrophils (%) (Auto) 57 % (31-73) 60 % (31-73) Lymphocytes (%) (Auto) 30 % (24-48) 25 % (24-48) Monocytes (%) (Auto) 9 % (0-9) 10 % (0-9) Eosinophils (%) (Auto) 4 % (0-3) 4 % (0-3) Basophils (%) (Auto) 0 % (0-3) 1 % (0-3) Neutrophils # (Auto) 4.7 x10^3/uL (1.8-7.7) 5.1 x10^3/uL (1.8-7.7) Lymphocytes # (Auto) 2.4 x10^3/uL (1.0-4.8) 2.2 x10^3/uL (1.0-4.8) Monocytes # (Auto) 0.8 x10^3/uL (0.0-1.1) 0.8 x10^3/uL (0.0-1.1) Eosinophils # (Auto) 0.3 x10^3/uL (0.0-0.7) 0.4 x10^3/uL (0.0-0.7) Basophils # (Auto) 0.0 x10^3/uL (0.0-0.2) 0.1 x10^3/uL (0.0-0.2) Sodium Level 137 mmol/L (136-145) 137 mmol/L (136-145) Potassium Level 4.3 mmol/L (3.5-5.1) 3.9 mmol/L (3.5-5.1) Chloride Level 104 mmol/L (98-107) 103 mmol/L (98-107) Carbon Dioxide Level 28 mmol/L (21-32) 30 mmol/L (21-32) Anion Gap 5 (6-14) 4 (6-14) Blood Urea Nitrogen 13 mg/dL (8-26) 12 mg/dL (8-26) Creatinine 1.1 mg/dL (0.7-1.3) 1.1 mg/dL (0.7-1.3) Estimated GFR (Cockcroft-Gault) 74.1 74.1 Glucose Level 100 mg/dL (70-99) 95 mg/dL (70-99) Calcium Level 8.4 mg/dL (8.5-10.1) 8.8 mg/dL (8.5-10.1) Laboratory Tests Test 11/14/19 05:57 White Blood Count 8.5 x10^3/uL (4.0-11.0) Red Blood Count 4.47 x10^6/uL (4.30-5.70) Hemoglobin 13.9 g/dL (13.0-17.5) Hematocrit 39.7 % (39.0-53.0) Mean Corpuscular Volume 89 fL (79-100) Mean Corpuscular Hemoglobin 31 pg (25-35) Mean Corpuscular Hemoglobin Concent 35 g/dL (31-37) Red Cell Distribution Width 12.8 % (11.5-14.5) Platelet Count 549 x10^3/uL (140-400) Neutrophils (%) (Auto) 60 % (31-73) Lymphocytes (%) (Auto) 25 % (24-48) Monocytes (%) (Auto) 10 % (0-9) Eosinophils (%) (Auto) 4 % (0-3) Basophils (%) (Auto) 1 % (0-3) Neutrophils # (Auto) 5.1 x10^3/uL (1.8-7.7) Lymphocytes # (Auto) 2.2 x10^3/uL (1.0-4.8) Monocytes # (Auto) 0.8 x10^3/uL (0.0-1.1) Eosinophils # (Auto) 0.4 x10^3/uL (0.0-0.7) Basophils # (Auto) 0.1 x10^3/uL (0.0-0.2) Sodium Level 137 mmol/L (136-145) Potassium Level 3.9 mmol/L (3.5-5.1) Chloride Level 103 mmol/L (98-107) Carbon Dioxide Level 30 mmol/L (21-32) Anion Gap 4 (6-14) Blood Urea Nitrogen 12 mg/dL (8-26) Creatinine 1.1 mg/dL (0.7-1.3) Estimated GFR (Cockcroft-Gault) 74.1 Glucose Level 95 mg/dL (70-99) Calcium Level 8.8 mg/dL (8.5-10.1) Brief Hospital Course Mr. 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 Fountain, for treatment of right mandible and neck infection. Osteomyelitis. IV abx for 6 days, cont PO abx at [place] Dr. Fountain to follow outpatient, seen here, Discharge Information Condition at Discharge: Improved Follow Up: Weeks Disposition/Orders: D/C to Another Facility (usp) Scheduled Ampicillin Sodium/Sulbactam Na (Unasyn 3 Gm Vial) 3 Gm Vial, 3 GM IJ Q6HRS for jaw infection for 28 Days, #112 Prescribed by: YUAN MONACO on 11/14/19 1025 Docusate Sodium (Colace) 100 Mg Capsule, 100 MG PO DAILY for prevent const ipation, #30 Prescribed by: YUAN MONACO on 11/14/19 1027 Info (No Known Medications Prior To Admisstion) Each, 1 EACH MC unknown for unknown, (Reported) Entered as Reported by: SIRI QUEZADA on 11/08/19 1221 Last Taken: Unknown Dose on Unknown Date & Time Last Action: Reviewed on 11/09/191751 by TIMI FOUNTAIN Scheduled PRN Ibuprofen (Ibuprofen) 600 Mg Tablet, 600 MG PO PRN Q6HRS PRN for INFLAMMATION, #30 Prescribed by: YUAN MONACO on 11/14/19 1032 Oxycodone/Apap 5-325 (Percocet 5-325 Mg Tablet ) 1 Each Tablet, 1 TAB PO PRN Q4HRS PRN for PAIN, #25 Prescribed by: YUAN MONACO on 11/14/19 1025 Patient Instructions Patient Instructions unasyn for one month per ID consult Justicifation of Admission Dx: Justifications for Admission: Justification of Admission Dx: Yes (Culture / IV ABX / Surgical debridement) Cellulitis: Cellulitis YUAN MONACO MD Nov 14, 2019 12:42
== END 2019-11-14 13:15 | DRG 570 ==
LOC: ER 08:42 → 6 SOUTH 10:25 → EEVIPCON 10:25 → 4 NORTH 11-09 16:43
PROVIDERS: ADMIT Internal Medicine; ATTEND Internal Medicine
PROC: 0JB40ZZ Excision of Right Neck Subcutaneous Tissue and Fascia, Open Approach (ICD-10-PCS; 2019-11-08)
PROC: 0W9600Z Drainage of Neck with Drainage Device, Open Approach (ICD-10-PCS; 2019-11-08)
PROC: 0CDXXZ1 Extraction of Lower Tooth, Multiple, External Approach (ICD-10-PCS; 2019-11-08)
PROC: 0CDWXZ1 Extraction of Upper Tooth, Multiple, External Approach (ICD-10-PCS; 2019-11-08)
PROC: 02HV33Z Insertion of Infusion Device into Superior Vena Cava, Percutaneous Approach (ICD-10-PCS; principal; 2019-11-10)
PROC: B548ZZA Ultrasonography of Superior Vena Cava, Guidance (ICD-10-PCS; 2019-11-10)
DX: L02.11 Cutaneous abscess of neck (principal); A41.9 Sepsis, unspecified organism; L03.211 Cellulitis of face; E44.1 Mild protein-calorie malnutrition; M87.9 Osteonecrosis, unspecified; M27.2 Inflammatory conditions of jaws; K04.7 Periapical abscess without sinus; M54.16 Radiculopathy, lumbar region; Z20.828 Contact with and (suspected) exposure to other viral communicable diseases; E66.9 Obesity, unspecified; G89.29 Other chronic pain; Z68.32 Body mass index [BMI] 32.0-32.9, adult; Z87.891 Personal history of nicotine dependence
CPT/HCPCS: 36415; 36573; 70491; 77001; 80048; 80053; 85025; 87071; 87075; 87426; 96365; 96372; 96375; 96376; 99285; A7015; C1751; C1892; J0295; J1100; J1650; J1885; J2250; J2270; J2405; J2704; J2710; J3010; J3490; J7030; J7120; Q9967; G0378; U0003-CS